=== PATIENT | female | born 1975 | race Caucasian/White ===

== ENCOUNTER → 2018-06-28 | Outpatient (CLI) | payer OTHER | LOC: M LRY 14:20 | DX: M54.5 Low back pain (principal) ==

== ENCOUNTER → 2018-09-06 | Outpatient (CLI) | payer OTHER | LOC: M RAD 08:33 | DX: Z12.31 Encounter for screening mammogram for malignant neoplasm of breast (principal) ==

== ENCOUNTER → 2019-02-02 | Outpatient (CLI) | payer OTHER ==
--- NOTE | 2019-02-02 17:48 | REP ---
UNILATERAL DIAGNOSTIC MAMMOGRAM LEFT BREAST WITH LEFT BREAST ULTRASOUND: Patient reports a palpable lump in the left axillary region. There is also a skin redness which have developed recently. Mammogram of the left breast was performed with routine MLO and CC views as well as implant displaced views, as the patient has a breast implant in place. Comparison is made with prior study of 09/06/2018. There is no family history of breast cancer. Left breast implant appears intact. Extensive calcifications are seen along the surface of the implant. There is moderate adjacent fibroglandular tissue which appears unchanged with no evidence of mass or clustered microcalcifications. There is diffuse skin thickening of the left breast which is a new finding. Real-time sonographic evaluation of the left axillary region was performed in the region of the palpable lump. There is lymphadenopathy with hyperemia with Doppler evaluation. The enlarged lymph node measures 1.4 x 2.3 x 1.8 cm. Multiple other smaller lymph nodes are seen in the left axillary region, the next largest measures 19 x 13 mm. IMPRESSION :ACR 4 suspicious. Palpable lump corresponds to multiple enlarged left axillary lymph nodes, the largest measures 1.4 x 2.3 x 1.8 cm. That large lymph node is somewhat hyperemic. In addition there is diffuse skin thickening of the left breast without underlying parenchymal mass or clustered microcalcifications. The findings could be on the basis of mastitis and inflammatory reactive axillary adenopathy. However differential diagnosis would also include inflammatory breast carcinoma or other neoplastic causes for left axillary adenopathy. If the patient clinically does have mastitis then I would recommend followup mammogram and ultrasound after treatment to ensure that these findings resolve. Otherwise surgical consult is recommended to evaluate for these other possible neoplastic etiologies. This mammogram was interpreted with the aid of an FDA-approved computer-aided detection system. The patient states she had a clinical breast exam in 12/2018. The patient letter being requested is M4. [facility] of [facility] cancer is 9.4%. Electronically Signed by Virgilio Conklin MD 02/05/2019 12:18 P
== END ==
LOC: M RAD 12:48
PROVIDERS: ATTEND Obstetrics & Gynecology
DX: N63.20 Unspecified lump in the left breast, unspecified quadrant (principal); R59.0 Localized enlarged lymph nodes

== ENCOUNTER → 2019-02-14 | Outpatient (CLI) | payer OTHER ==
[~2019-02-14] MED LIST: LIDOCAINE 1% MDV 20ML VIAL As Ordered ONE
--- NOTE | 2019-02-14 17:20 | REP ---
ULTRASOUND GUIDED LEFT BREAST BIOPSY The procedure was performed under the direct supervision of Dr. Hill The patient has a history of multiple enlarged left axillary lymph nodes the largest measuring 1.4 x 2.3 x 1.8 cm seen on a previous ultrasound dated 02/02/2019. The risks and benefits of the procedure were explained to the patient and informed consent was obtained. The left axillary lymph node was localized using ultrasound guidance. The skin was prepped and draped in a sterile fashion. 1% Xylocaine was used as a local anesthetic. Using ultrasound guidance a 19/20 gauge axial needle was inserted and eight core biopsy samples were obtained. A marker clip was placed at the biopsy site. The post clip placement mammogram was not performed because it was felt that the lymph node was too far lateral to be seen on mammogram. The patient tolerated the procedure well and there were no immediate complications. After the appropriate amount of monitored convalescence the patient was discharged from the department. Reviewed by BRUNO Diaz 02/14/2019 03:16 P Electronically Signed by Monico Hill MD 02/14/2019 05:11 P
== END ==
LOC: M RADPRO 11:48
PROVIDERS: ATTEND Surgery
DX: C77.3 Secondary and unspecified malignant neoplasm of axilla and upper limb lymph nodes (principal)

== ENCOUNTER → 2019-02-21 | Outpatient (CLI) | payer OTHER ==
[~2019-02-21] MED LIST changes: +ISOVUE-370 76% 125ML VIAL (Q9967 PER ML) As Ordered ONE; -LIDOCAINE 1% MDV 20ML VIAL As Ordered ONE
--- NOTE | 2019-02-24 11:01 | REP ---
Clinical: Axillary adenopathy. Technique: Axial contrast enhanced images from the thoracic inlet to the upper abdomen with coronal and sagittal re-formations. Findings: Significant left axillary adenopathy is appreciated with lymph nodes measuring up to approximately 2.4 cm diameter and subtle adjacent inflammatory fat stranding. There appears to be asymmetric increased soft tissue involving the left breast specifically along the anteroinferior region as well as associated skin thickening. These findings are nonspecific but differential diagnosis includes inflammatory process such as mastitis as well as neoplasm. Underlying bilateral breast implants are noted. 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 No underlying acute mediastinal or pleuroparenchymal process is appreciated. There is no evidence for mediastinal or hilar adenopathy. Surrounding osseous structures are intact. Limited upper abdomen demonstrates normal bilateral adrenal glands. Impression: 1. Abnormal changes involving the left breast and associated left axillary adenopathy. Differential diagnosis includes but is not limited to inflammatory process such as mastitis as well as malignancy. 2. 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 Electronically Signed by Fabian Mayers MD 02/24/2019 10:59 A
== END ==
LOC: M RAD 18:05
PROVIDERS: ATTEND Surgery
DX: R59.0 Localized enlarged lymph nodes (principal); R91.8 Other nonspecific abnormal finding of lung field
CPT/HCPCS: 71260; Q9967

== ENCOUNTER 2019-03-07 08:19 | Day surgery (SDC) | payer OTHER ==
[2019-03-07] VITALS (12 sets, daily range): BP systolic 100–124; BP diastolic 54–62
[~2019-03-07] VITALS: Ht 170.2 cm; Wt 78.3 kg
[~2019-03-07 08:19] MED LIST changes: -ISOVUE-370 76% 125ML VIAL (Q9967 PER ML) As Ordered ONE; +LIDOCAINE 2% INJ 100 MG/5 ML SDV (FOR ANES.) As Ordered ONE; +MIDAZOLAM INJ 2 MG/2 ML VIAL (J2250) As Ordered ONE; +ONDANSETRON 4MG/2ML VIAL (J2405) As Ordered ONE; +PROPOFOL 500 MG/50 ML VIAL As Ordered ONE; +dexameTHASONE 4 MG/ML 1ML VIAL (J1100) As Ordered ONE; +fentaNYL 100 MCG/2 ML INJECTION (J3010) As Ordered ONE
[2019-03-07] MEDS ORDERED: LIDOCAINE 1% SDV INJ 30 ML VIAL As Ordered ONE (08:46)
[2019-03-07] MEDS ORDERED: HEPARIN SOD (PORCINE) 5000 UNITS/ML VIAL As Ordered ONE (08:46)
[2019-03-07] MEDS ORDERED: BUPIVACAINE LIPOSOME/PF 1.3% 20ML VIAL (13.3MG/ML)(EXPAREL)(C9290 PER1MG) As Ordered ONE (08:47)
[2019-03-07] MEDS ORDERED: VANCOMYCIN 1000 MG/20 ML VIAL (J3370) As Ordered ONE (09:02)
[2019-03-07 09:11] LABS: URINE PREG TEST NEGATIVE (NEGATIVE)
[2019-03-07] MEDS ORDERED: VANCOMYCIN HCL 1,000 MG, VIAL MATE ADAPTER 1 EACH in D5W 250 ML IV ONE (09:15)
[2019-03-07] MEDS ORDERED: MUPIROCIN 2% OINT 22 GM TUBE TOP ONE (09:15)
[2019-03-07] MEDS ORDERED: MUPIROCIN 2% OINT 22 GM TUBE As Ordered ONE (09:23)
[2019-03-07] MEDS ORDERED: ePHEDrine SULFATE 25 MG/5 ML(5MG/ML) SYRINGE As Ordered ONE (09:39)
[2019-03-07] MEDS ORDERED: PROPOFOL 200 MG/20 ML VIAL As Ordered ONE ×4 (10:17→11:13)
[2019-03-07] MEDS ORDERED: fentaNYL 100 MCG/2 ML INJECTION (J3010) As Ordered ONE (10:22)
[2019-03-07] MEDS ORDERED: ISOVUE-300 61% 50ML VIAL (Q9967) As Ordered ONE (10:46)
[2019-03-07] MEDS ORDERED: KCL 20MEQ IN D5/NS 1000ML 1,000 ML IV SCH (11:44)
[2019-03-07] MEDS ORDERED: NORCO, ANEXSIA 5/325MG TABLET (HYDROcodone/ACETAMINOPHEN) PO PRN (11:45)
[2019-03-07] MEDS ORDERED: ACETAMINOPHEN TAB 650MG DOSE (2X325MG) PO PRN (11:45)
[2019-03-07] MEDS ORDERED: ONDANSETRON 4MG/2ML VIAL (J2405) IV PRN ×2 (11:45→12:00)
[2019-03-07] MEDS ORDERED: PERCOCET 5MG/325MG TAB PO PRN ×3 (11:45→12:00)
[2019-03-07] MEDS ORDERED: LR 1,000 ML IV SCH (12:00)
--- NOTE | 2019-03-07 12:25 | REP ---
Portable chest, single AP view, the patient sitting, 11:47 a.m.: Comparison is from 08:35 a.m. earlier today. Right lower lobe fissural anomaly and displacement of the heart to the right are unchanged from the comparison study and from the chest CT of 02/21/2019. There is a right IJ Hwbsgk-M-Jgkn catheter with the tip in the right atrium as an interval change. There is no pneumothorax. There is widening of the right paratracheal stripe as an interval change. Follow-up CT might be considered for further evaluation of the paratracheal area. The left lung is clear. Cardiac size is normal. Impression: Widening of the right paratracheal stripe has a change from the study earlier today. Follow-up chest CT might be considered to evaluate the right paratracheal area. Right IJ Cwvasq-U-Eiyy, not present previously. No pneumothorax. 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
--- NOTE | 2019-03-07 13:59 | RO ---
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 PROCEDURE: Insertion of a right subclavian Infusaport converted to a right internal jugular Infusaport. SURGEON: Dr. Shant Castañeda. MANAGER RESEARCH AND DEVELOPMENT: ANESTHESIA: Monitored sedation. FINDINGS: The vein was initially found on the first pass and a wire was placed without difficulty into the right atrium. The tract was dilated but was quite difficult to dilate. It was then dilated with a peel-away introducer and the catheter placed. The catheter would not proceed down the wire tract but would not enter the superior vena cava (SVC) of the right atrium. Figuring that the difficulty was secondary to a costoclavicular ligament, she was stuck a second time. Again, the vein immediately found on the first pass more laterally. This tract was dilated. The catheter was removed and again tried to pass via the second dilator and would not proceed into the SVC. Around that time, I noted that there was an increased shadow probably representing a hematoma from removing the catheter after dilation on the first stick. After several more tries of trying to get the catheter into the subclavian vessel, I called Dr. Swenson of vascular surgery. We tried a number of wire manipulations through the second subclavian site, none of which passed satisfactorily and therefore, Dr. Swenson found the internal jugular vein with ultrasound and placed a wire with that. That tract was then dilated and the remainder of the procedure went smoothly. The catheter was placed in the middle of the right atrium and all contours were smoothed at the end of the procedure. DESCRIPTION OF PROCEDURE: Under satisfactory monitored sedation, the patient prepped and draped in the usual fashion. As noted above, the subclavian vein was found on the first pass at the mid clavicular line. The tract was dilated but with some difficulty and then a peel-away introducer placed also with some difficulty. The catheter was placed low numbers down into the right atrium under fluoroscopic control and would not pass into the superior vena cava. After a number of manipulations, I still could not get the catheter to pass into the SVC. Accordingly as noted above, the subclavian vein was again on the first pass and the wire was passed without difficulty into the right atrium. Again the tract was dilated and again the catheter would not pass into the superior vena cava. I then noted that there was a increasing shadow in and around the subclavian vein, which I thought represented a hematoma. Dr. Swenson came at my request and after trying to wire the vein through the original catheter site, he found the internal jugular vein and passed a wire into the right atrium. The internal jugular tract was then dilated without difficulty and a peel-away introducer placed. The catheter was placed via the peel-away introducer and a tunnel was created between the internal jugular site and the port site. It should be noted the port site had already been opened after passing the first wire with the expectation that the catheter would thread into the right atrium without difficulty. The port pocket was developed by making a subcutaneous pocket with the electrocautery and blunt dissection. It was noted that on all of the vascular passes and creating the pocket, she had very dense fibrous tissue. After creating the tunnel between the internal jugular site and the port site, the catheter was pulled through and positioned in the middle of the right atrium with fluoroscopic control. The catheter was cut to appropriate length, a collar was placed and connected into the port. The port aspirated without difficulty. It was flushed with heparinized saline and with a final flush of heparin 100 units per mL. The port was secured to the chest wall with two #2-0 silk sutures. Final pictures were taken and all contours were smooth. The wounds were closed with running #3-0 Vicryl sutures for the subcutaneous tissues with running #4-0 silk sutures for the skin. The patient tolerated the procedure well and left the operating room in satisfactory condition for the recovery room.
--- NOTE | 2019-03-07 17:27 | REP ---
Chest x-ray: Two views. History: Right-sided [id number]. Comparison chest CT study February 21, 2019. Findings: Bilateral breast augmentation implants are noted with a peripheral a calcification. Anomalous fissural anatomy is seen in the right chest with the deviation of the heart to the right as on CT study. There is no evidence of infiltrate. No pleural effusion is seen. Heart is not enlarged. The aorta and gastric air bubble are left-sided. No significant bony abnormality. Impression: Anomalous fissural anatomy right lung with some deviation of the heart to the right as seen on recent CT study. Status post bilateral breast augmentation. Otherwise no acute disease. Electronically Signed by Monico Hill MD 03/07/2019 05:19 P
--- NOTE | 2019-03-07 17:28 | REP ---
Chest x-ray: Two views. History: Zbsdvh-X-Dxib insertion. Breast carcinoma. Findings: A sequence of two last image hold fluoroscopically obtained spot radiographs document [id number] catheter position placed via the right side. 9 minutes 43 seconds of fluoroscopy time is reported. Electronically Signed by Monico Hill MD 03/07/2019 05:19 P
[2019-03-07] MEDS ORDERED: HEPARIN SOD (PORCINE) 5000 UNITS/ML VIAL SC SCH (21:00)
[2019-03-08 04:00] VITALS: BP 111/55
[2019-03-08 05:49] LABS: BASO % 0.3 % (0.0-1.0); EOS % 0.3 % (0.0-3.0); HEMATOCRIT 35.1 % (36.0-47.0); HEMOGLOBIN 11.7 g/dl (12.0-15.5); LYMPH # 2.3 10^3/uL (1.5-4.5); LYMPH % 26.6 % (24.0-44.0); MEAN CORPUSCULAR HGB CONC 33.3 g/dl (32.0-36.5); MEAN CORPUSCULAR VOLUME 86.9 fl (80.0-96.0); MONO # 0.6 10^3/uL (0.0-0.8); MONO % 6.3 % (0.0-5.0); NEUTROPHILS # 5.7 10^3/uL (1.8-7.7); NEUTROPHILS % 66.3 % (36.0-66.0); PLATELET COUNT, AUTOMATED 257 10^3/uL (150-450); RED BLOOD COUNT 4.04 10^6/uL (4.00-5.40); WHITE BLOOD COUNT 8.7 10^3/uL (4.0-10.0)
[2019-03-08 06:10] LABS: BLOOD UREA NITROGEN 8 MG/DL (7-18); CALCIUM LEVEL 8.5 MG/DL (8.5-10.1); CARBON DIOXIDE LEVEL 27 MEQ/L (21-32); CHLORIDE LEVEL 108 MEQ/L (98-107); CREATININE FOR GFR 0.62 MG/DL (0.55-1.30); GLOMERULAR FILTRATION RATE > 60.0 (>58); GLUCOSE, FASTING 89 MG/DL (70-100); POTASSIUM SERUM 3.7 MEQ/L (3.5-5.1); SODIUM LEVEL 141 MEQ/L (136-145)
[2019-03-08 08:00] VITALS: BP 117/63
--- NOTE | 2019-03-08 08:00 | REP ---
PA and lateral chest: Comparisons are 03/07/2019. The right IJ Faqgmq-M-Bzvj is unchanged with the tip in the right atrium. There is no pneumothorax or pleural fluid collection. The widening of the right paratracheal stripe noted on the 03/07/1929 study and 09/1947 has decreased in size. Follow-up CT might be considered for further evaluation. The right lower lobe fissural anomaly and displacement of the heart to the right are unchanged. Left lung is clear. Impression: The widening of the right paratracheal stripe has decreased. Right IJ central venous catheter, unchanged. Electronically Signed by Virgilio Ku MD 03/08/2019 07:51 A
--- NOTE | 2019-03-08 09:21 | DSES ---
DATE OF ADMISSION: 03/07/2019 DATE OF DISCHARGE: 03/08/2019 DISCHARGE DIAGNOSES: 1. Inflammatory breast cancer, triple negative, need for vascular access and chemotherapy. 2. Status post PowerPort placement. 3. Hematoma mediastinum after placement of port. HOSPITAL COURSE: The patient is a 43-year-old white female with inflammatory breast cancer scheduled for approximately three months of chemotherapy prior to undertaking mastectomy. Her markers including progesterone, estrogen and HER2 are all negative. During the procedure while the subclavian vein was found on the first pass very easily, there was difficulty dilating the site. The subclavian vein was found twice in different portions underneath the clavicle. The Peel-Away introducer had been placed and then removed, and the first site bled. The port was eventually placed in the internal jugular vein. During fluoroscopy I noted a new shadow, which I interpreted as a hematoma and therefore had her stay overnight as an SDC patient. Postoperatively, she had minimal pain. Her discharge x-ray showed near resolution of the hematoma. She is being discharged today on Tylenol or Aleve as needed for pain. She will return to see me in one week in follow-up with a chest x-ray.
[2019-03-16] MEDS ORDERED: ZYPR10TA PO (11:10)
[2019-03-16] MEDS ORDERED: DECA4TAB PO (11:10)
[2019-03-16] MEDS ORDERED: ONDA8TAB7 PO (11:10)
[2019-03-16] MEDS ORDERED: PROC10TA4 PO (11:10)
== END 2019-03-08 10:25 | disposition home or self-care (01) ==
LOC: M SDC 08:19 → M ICU 12:40 → M PCU 03-08 00:30 → M SDC 03-08 10:25
PROVIDERS: ATTEND Thoracic Surgery (Cardiothoracic Vascular Surgery)
DX: C50.912 Malignant neoplasm of unspecified site of left female breast (principal); Z45.2 Encounter for adjustment and management of vascular access device; I97.418 Intraoperative hemorrhage and hematoma of a circulatory system organ or structure complicating other circulatory system procedure; Z88.0 Allergy status to penicillin; Z88.2 Allergy status to sulfonamides; Z88.6 Allergy status to analgesic agent; Z87.891 Personal history of nicotine dependence
CPT/HCPCS: 36415; 36561; 71045; 71046; 76000; 80048; 84703; 85025; 96360; 96361; 96372; C1769; C1788; C1887; C9290; J1100; J2250; J2405; J3010; J3370; Q9967

== ENCOUNTER → 2019-03-12 | Outpatient (CLI) | payer OTHER ==
--- NOTE | 2019-03-13 06:57 | ECHO ---
DATE OF PROCEDURE: 03/12/2019 PATIENT LOCATION: Outpatient. REASON FOR ECHOCARDIOGRAM: Chemotherapy drug monitoring. 2D MEASUREMENTS: IVS: 0.92 cm LV: 5.3 cm LVPW: 0.92 cm LA: 3.3 cm Aorta: 2.9 cm IVC: 1.4 cm DOPPLER MEASUREMENTS: Peak velocity across the aortic valve: 1.3 m/s Peak velocity across the LVOT: 0.52 m/s Mitral E: 1.2 Mitral A: 0.59 with a ratio of 1.9 Maximum tricuspid valve velocity: 2.4 m/s 2D COMMENTS: 1. Normal left ventricular size, wall thickness, and normal global left ventricular systolic function. The estimated global left ventricular systolic ejection fraction is 60-65%. 2. Normal left atrium. Normal right atrium and left ventricle. 3. The atrial septum appeared to be normal without evidence of defect or shunt. 4. Normal aortic root. 5. Trace to small pericardial effusion noted, no evidence of cardiac tamponade. 6. Mildly calcified aortic valve with normal leaflet excursion. Mildly calcified mitral annulus with normal anterior mitral valve leaflet motion. Normal tricuspid valve. The pulmonic valve was not well visualized. 7. The inferior vena cava was normal in size, central venous pressure is most likely normal. Doppler, it detects only trace tricuspid regurgitation. The calculated pulmonary artery systolic pressure varies between 30 to 40 mmHg, but may be over estimated. Assessment of the left ventricular diastolic function appeared to be normal. IMPRESSION: 1. Normal global left ventricular systolic and diastolic function. 2. Aortic valve sclerosis without stenosis or aortic regurgitation. 3. As related, mitral annulus calcification. No evidence of mitral regurgitation or mitral stenosis. 4. Trace tricuspid regurgitation with probably mild pulmonary hypertension. 5. Trace/small pericardial effusion noted, no evidence of cardiac tamponade. 6. The study was technically limited due to poor acoustic window.
== END ==
LOC: M CARPUL 08:09
PROVIDERS: ATTEND Internal Medicine Hematology & Oncology
DX: C50.119 Malignant neoplasm of central portion of unspecified female breast (principal)

== ENCOUNTER → 2019-03-13 | Outpatient (CLI) | payer OTHER ==
--- NOTE | 2019-03-14 09:16 | REP ---
PET/CT: HISTORY: Staging left breast carcinoma. COMPARISONS: Comparison chest CT study of February 21, 2019. TECHNIQUE: 59 minutes following the intravenous injection of a 9.68 mCi dose of F-18 FDG, three-dimensional PET scintigraphy is acquired from the skull base to the proximal thighs. Triplanar noncontrast CT scanning is acquired through the same anatomic range for attenuation correction, and image registration with scan parameters optimized to minimize radiation exposure to the patient. PET scintigraphy and CT datasets were fused and displayed on a workstation with multiplanar and projection display capability. PET/CT FINDINGS: There is extensive abnormal hypermetabolic uptake in the left breast. There are large areas of hypermetabolic tissue in the left breast inferiorly and throughout the subareolar region and upper outer quadrant. In the inferior and slightly medial left breast, maximum standard uptake value peaks at 15.32. The remainder of the hypermetabolic activity within the breast parenchyma shows lesser degree of avidity. Maximum SUV value in the left subareolar breast tissue is 4.75 and that in a large area of hypermetabolic abnormal uptake in the upper outer quadrant of the left breast is at 6.0. There is extensive hypermetabolic left axillary lymphadenopathy, which is fairly bulky. Maximum standard uptake value in these multiple left axillary lymph nodes is 17.1. This is the adenopathy seen on CT. There is hypermetabolic left subclavian adenopathy with maximum standard uptake value up to 5.95. There is left supraclavicular adenopathy in several small nodes. The most avid of these left supraclavicular nodes has maximum standard uptake value of 9.0. Lastly there is an area of increased uptake in the right mediastinum superiorly in the paratracheal region with maximum standard uptake value 5.12. This is more avid than background vascular mediastinal uptake. There is no abnormal pulmonary parenchymal hypermetabolic uptake. Head and neck soft tissues are otherwise unremarkable. No abnormal uptake is seen in the abdomen or pelvis. No abnormal skeletal uptake is appreciated. IMPRESSION: Extensive abnormal hypermetabolic uptake throughout much of the left breast as above with bulky left axillary adenopathy. Hypermetabolic subclavian and the supraclavicular adenopathy is also seen on the left and there is a right mediastinal focus. Otherwise negative. Electronically Signed by Monico Hill MD 03/14/2019 08:01 P
== END ==
LOC: M PLARAD 14:17
PROVIDERS: ATTEND Internal Medicine Hematology & Oncology
DX: C50.812 Malignant neoplasm of overlapping sites of left female breast (principal)

== ENCOUNTER → 2019-05-03 | Outpatient (CLI) | payer OTHER ==
[~2019-05-03] MED LIST changes: +COLA100C5 PO; +DECA4TAB PO; -LIDOCAINE 2% INJ 100 MG/5 ML SDV (FOR ANES.) As Ordered ONE; -MIDAZOLAM INJ 2 MG/2 ML VIAL (J2250) As Ordered ONE; +OMEP20CA3 PO; +ONDA8TAB7 PO; -ONDANSETRON 4MG/2ML VIAL (J2405) As Ordered ONE; +PROC10TA4 PO; -PROPOFOL 500 MG/50 ML VIAL As Ordered ONE; +ZYPR10TA PO; -dexameTHASONE 4 MG/ML 1ML VIAL (J1100) As Ordered ONE; -fentaNYL 100 MCG/2 ML INJECTION (J3010) As Ordered ONE
--- NOTE | 2019-05-03 15:47 | REP ---
UNILATERAL MAMMOGRAM LEFT BREAST AND LEFT AXILLARY ULTRASOUND: The patient underwent ultrasound guided biopsy of left axillary adenopathy recently which showed evidence for primary breast cancer with metastatic adenopathy in the left axilla. She has just finished her first round of chemotherapy treatment. Followup unilateral mammogram was requested of the left breast. Comparison is made with prior studies 02/02/2019 and 09/06/2018. Once again, a left breast implant is visualized with extensive calcifications along its surface. There is no extracapsular rupture. Mild to moderate adjacent fibroglandular tissue is seen in the visualized left breast. There is moderate diffuse skin thickening. This was present on the exam of 02/02/2019. No new mass or clustered microcalcifications are seen. Real-time sonographic evaluation of the left axilla is performed. Three lymph nodes are visualized. One contains a biopsy clip and measures 1.5 x 0.6 x 1.0 cm. Two other smaller lymph nodes both measure 9 x 4 x 8 mm. IMPRESSION: ACR category 6 known breast cancer. There is again moderate degree of diffuse skin thickening of the left breast without underlying parenchymal mass or clustered microcalcifications. Left axillary ultrasound shows a dominant lymph node containing a biopsy clip measuring 1.5 x 0.6 x 1.0 cm. Two adjacent subcentimeter lymph nodes are seen. Electronically Signed by Virgilio Conklin MD 05/07/2019 04:55 P
== END ==
LOC: M RAD 12:58
PROVIDERS: ATTEND Nurse Practitioner Family
DX: C50.912 Malignant neoplasm of unspecified site of left female breast (principal)

== ENCOUNTER → 2019-06-12 | Outpatient (CLI) | payer OTHER ==
[~2019-06-12] MED LIST changes: +CHOL100029 PO; +MULTCAP PO; +OMEP1CAP73 PO; -OMEP20CA3 PO; +ONDA8TAB10 PO; -ONDA8TAB7 PO; +PEPC1TAB5 PO; +SENN1TAB41 PO
--- NOTE | 2019-06-12 14:11 | REP ---
LEFT AXILLARY ULTRASOUND: Real-time sonographic evaluation of the left axilla performed and compared to a prior study of 05/03/2019. Once again, in the left axilla, there is a lymph node with a biopsy clip. It measures 15 x 13 x 7 mm. This is essentially unchanged compared to the prior study. Electronically Signed by Virgilio Conklin MD 06/12/2019 06:45 P
== END ==
LOC: M RAD 11:07
PROVIDERS: ATTEND Internal Medicine Medical Oncology
DX: C50.912 Malignant neoplasm of unspecified site of left female breast (principal)

== ENCOUNTER → 2019-06-14 | Outpatient (CLI) | payer OTHER ==
[~2019-06-14] MED LIST changes: -CHOL100029 PO; -OMEP1CAP73 PO; +OMEP20CA4 PO; -ONDA8TAB10 PO; +ONDA8TAB7 PO; +VITAD1000T PO
--- NOTE | 2019-06-14 12:36 | REP ---
UNILATERAL MAMMOGRAM, LEFT BREAST: HISTORY: Left breast cancer, biopsy performed 02/14/2019. Patient has had chemotherapy treatment. Comparison made with prior studies 05/03/2019, 07/05/2019, and 09/06/2018. Once again, there is a left breast implant with extensive calcifications along its surface. Scattered fibroglandular tissue in the adjacent left breast is stable. No new mass or architectural distortion is seen. There is again diffuse skin thickening of the left breast, which is stable compared to the 05/03/2019 exam. IMPRESSION: BIRADS 6: BI-RADS/ACR category 6 mammogram. Known Biopsy Proven Malignancy. ACR category 6. Known left breast cancer. Moderate diffuse skin thickening is unchanged. There is moderate underlying fibroglandular tissue appearing nonspecific with no new mass or clustered microcalcifications. Essentially no change from the prior study 05/03/2019. Electronically Signed by Virgilio Conklin MD 06/17/2019 07:09 P
== END ==
LOC: M RAD 11:11
PROVIDERS: ATTEND Internal Medicine Medical Oncology
DX: C50.919 Malignant neoplasm of unspecified site of unspecified female breast (principal)

== ENCOUNTER → 2019-10-15 | Outpatient (CLI) | payer OTHER ==
[~2019-10-15] MED LIST changes: +CHOL100029 PO; +GASTROGRAFIN SOLUTION 30ML (Q9963) As Ordered ONE; +ISOVUE-370 76% 100ML VIAL (Q9967) As Ordered ONE; -VITAD1000T PO
--- NOTE | 2019-10-15 12:25 | REP ---
CT CHEST WITH IV CONTRAST: HISTORY: Restaging breast carcinoma. Comparison chest CT study March 14, 2019. CT CONTRAST DOSE: 100 mL of intravenous Isovue 370. 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 There is an incomplete fissure in the right lower lobe obliquely oriented. This morphology is unchanged from prior studies including January and February 2019. There is no evidence of pleural effusion, lung mass or significant nodule. The prior study showed bilateral augmentation implants whose margins were somewhat calcific. The implant has been removed from the left breast in the interval since the last study and a tissue superannuation funds manager is seen in place, although it appears deflated. The right augmentation implant is again seen unchanged. A left mastectomy has been carried out. No axillary lymphadenopathy is seen. The previously noted left axillary nodes have been removed. The only visible left axillary lymph nodes remaining measures 5.5 mm. No supraclavicular or other extrathoracic adenopathy is seen. There is a right-sided Edhbtl-U-Zxtu catheter. No hilar or mediastinal mass or adenopathy is observed. There is dextroversion of the heart as previously noted. No adrenal lesion is seen. Bone window settings show no bony destructive lesion or sclerotic change. IMPRESSION: Interval left mastectomy with tissue superannuation funds manager in place. Status post augmentation on the right. 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 No active cardiopulmonary disease seen. Previously noted left axillary lymph nodes have been removed. Electronically Signed by Monico Hill MD 10/15/2019 12:46 P
--- NOTE | 2019-10-15 12:27 | REP ---
CT ABDOMEN PELVIS WITHOUT AND WITH IV CONTRAST: With oral contrast. HISTORY: Restage breast carcinoma. No comparison abdomen or pelvis CT. Comparison is made with PET/CT study March 13, 2019. FINDINGS: Left breast has been removed. No adrenal lesion is seen. There is a small sliding-type hiatal hernia. There is no focal liver mass lesion is seen. Spleen is unremarkable. No abnormality is noted in the pancreas. The gallbladder is unremarkable. The kidneys enhance symmetrically and are morphologically intact. There is no evidence of ascites. Small and large intestinal bowel loops are unremarkable in the abdomen and pelvis except for some left colonic diverticulosis without CT evidence of diverticulitis. No uterine or ovarian abnormality is seen. Urinary bladder is unremarkable. No bony destructive lesion is seen. IMPRESSION: No acute abdominal or pelvic abnormality. Electronically Signed by Monico Hill MD 10/15/2019 12:46 P
== END ==
LOC: M RAD 09:04
PROVIDERS: ATTEND Internal Medicine Medical Oncology
DX: C50.919 Malignant neoplasm of unspecified site of unspecified female breast (principal); Z90.12 Acquired absence of left breast and nipple
CPT/HCPCS: 71260; 74178; Q9963; Q9967

== ENCOUNTER 2019-11-09 12:45 | Outpatient (RCR) | payer OTHER ==
[~2019-11-09 12:45] MED LIST changes: -GASTROGRAFIN SOLUTION 30ML (Q9963) As Ordered ONE; -ISOVUE-370 76% 100ML VIAL (Q9967) As Ordered ONE; +OMEP-172 PO; -OMEP20CA4 PO
== END 2019-11-27 ==
LOC: M PT 12:45
PROVIDERS: ATTEND Student in an Organized Health Care Education/Training Program
DX: C50.812 Malignant neoplasm of overlapping sites of left female breast (principal); Z17.1 Estrogen receptor negative status [ER-]

== ENCOUNTER → 2019-12-07 | Outpatient (CLI) | payer OTHER ==
[~2019-12-07] MED LIST changes: -OMEP-172 PO; +OMEP1CAP73 PO; +ONDA8TAB10 PO; -ONDA8TAB7 PO
--- NOTE | 2019-12-11 07:32 | RADONC ---
RADIATION ONCOLOGY CONSULTATION NOTE DATE: 12/07/2019 CHART #: [id number] DIAGNOSIS: Left breast cancer. STAGE: III C, T4d, N3, M0, poorly differentiated, grade 3, ER negative, HI negative, HER2/russ negative. ECOG PERFORMANCE STATUS: 0. CONSULTATION NOTE: Ms. 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 HISTORY OF PRESENT ILLNESS: The patient was in her usual state of health until December 2018 when she felt a lump in her left axillary region. The patient had a history of breast augmentation bilaterally prior to that. The patient noticed that the lump and skin were growing firmer and there was redness to the skin too, which was patchy and located on various parts of the breast, including in the lower half of the breast. The nipple itself was also indurated. The patient subsequently underwent diagnostic workup which included a diagnostic mammogram done 02/02/2019. This showed a suspicious area where the palpable lump was present. It corresponded to multiple enlarged left axillary lymph nodes. The largest measuring 1.4 cm x 2.3 cm x 1.8 cm. In addition, there was diffuse skin thickening of the left breast as well as the underlying parenchymal area. There were no definitive lumps or microcalcifications in the breast tissue itself. A PET scan was done on 03/13/2019 and showed hypermetabolic uptake which was extensive throughout the left breast with bulky left axillary lymphadenopathy. There was hypermetabolic uptake in the subclavian and supraclavicular region as well and there was also adenopathy seen in the right mediastinal area. The mediastinal region was superior in the paratracheal region and had an SUV value of 5.12. The patient subsequently underwent ultrasound-guided biopsy of her left axillary lymph node on 02/14/2019 which showed a poorly differentiated metastatic adenocarcinoma consistent with a breast primary. The tumor was estrogen receptor and progesterone receptor negative and HER2/russ negative as well. Neoadjuvant therapy was given consisting of dose dense Adriamycin and Cytoxan as well as 12 weekly doses of Taxol. The patient responded nicely and reports to me that on October 22, 2019 she underwent mastectomy and axillary lymph node dissection. Unfortunately, I do not have those records at this time and we await them to make final decisions with regards to her overall treatment plan. She is now presenting for consideration of postoperative radiation therapy in attempt to achieve local control. PAST MEDICAL HISTORY: The patient's past medical history is positive for her bilateral breast implants, but is otherwise noncontributory. ALLERGIES: The patient is allergic to ASPIRIN, IBUPROFEN, PENICILLIN and SULFA DRUGS. SOCIAL HISTORY: The patient had smoked one half-a-pack cigarettes per day for 20 years. She quit when she was diagnosed with breast cancer. She drinks alcohol weekly. FAMILY HISTORY: The patient's family history is positive for maternal grandmother and mother with skin cancers. REVIEW OF SYSTEMS: The patient's review of systems is noncontributory. Denies nausea, vomiting, fevers, chills, night sweats, diplopia, headaches, anxiety or depression, anorexia, weight loss, visual disturbances, chest pain, urinary or bowel difficulties, bone pain, or neurological problems. PHYSICAL EXAMINATION: The patient is a well-developed, well-nourished female in no acute distress. HEENT exam is normocephalic, atraumatic. Extraocular movements are intact. There is no palpable cervical, supraclavicular, infraclavicular, axillary, or inguinal lymphadenopathy present. Lungs are clear to auscultation and percussion. Heart has a regular rate and rhythm. Abdomen is benign with no hepatosplenomegaly, masses, or tenderness. Breast examination reveals a right breast which has a surgical enlargement in place. Her left chest wall shows no evidence of nodularity, ulceration or residual disease. Skeletal examination reveals no tenderness to pressure or percussion of the bony skeleton. Extremities reveal no clubbing, cyanosis, or edema. Neurologic exam is grossly intact, as is the remainder of the physical examination. ASSESSMENT: First, we are attempting to obtain the patient's pathology reports as well as her operative notes from her mastectomy for the sake of thoroughness and before we can officially make a recommendation with regards to our doses and treatment plans. I have discussed with the patient in detail the potential benefits as well as possible acute and chronic sequelae of external beam radiation therapy. We have discussed logistics of treatment planning, simulation and subsequent fractionated daily radiation treatments. I am scheduling the patient for simulation and initiation of treatment planning, once again, pending our obtaining the full surgical and pathological records. In light of this patient's extensive disease and the need to treat the internal mammary as well as supraclavicular and axillary lymph nodes, as well as, the left breast and the lower cervical region, IMRT radiation will be needed. This will give us the opportunity to minimize the doses to her heart, lungs and other normal tissue. In light of the surgically enhanced right breast, that area will be receiving some radiation as well. Thank you for allowing us to participate in the care of this very pleasant woman. If I could be of any further assistance or provide you any information, please feel free to contact me at anytime as. Always warm regards.
== END ==
LOC: M ONCR 09:58
PROVIDERS: ATTEND Radiology Radiation Oncology
DX: C50.912 Malignant neoplasm of unspecified site of left female breast (principal); Z90.12 Acquired absence of left breast and nipple; Z87.891 Personal history of nicotine dependence; Z88.0 Allergy status to penicillin; Z88.2 Allergy status to sulfonamides; Z88.6 Allergy status to analgesic agent

== ENCOUNTER → 2019-12-28 | Outpatient (RCR) | payer OTHER ==
--- NOTE | 2019-12-17 11:47 | RADONC ---
RADIATION ONCOLOGY SIMULATION NOTE DATE OF SERVICE: 12/17/2019 CHART NUMBER: [id number] Ms. Dennis was taken to the CT scan for CT simulation of her left breast field. CT was accomplished without difficulty or discomfort. Radiation treatment planning is underway and radiation treatments will begin subsequently. An immobilization device was created and will be used throughout the course of treatment. It was created without difficulty or discomfort. I was physically present throughout the course of CT simulation.
[~2019-12-28] MED LIST changes: +ACET-683 PO; +ADV250INH INH; +PERC5TAB12 PO
== END ==
LOC: M ONCR 12-17 10:17
PROVIDERS: ATTEND Radiology Radiation Oncology
DX: C50.912 Malignant neoplasm of unspecified site of left female breast (principal)

== ENCOUNTER 2019-12-29 14:34 | Emergency (ER) | payer OTHER ==
[~2019-12-29] VITALS: Ht 170.2 cm; Wt 86.9 kg
[~2019-12-29 14:34] MED LIST changes: -ACET-683 PO; -ADV250INH INH; -PERC5TAB12 PO
[2019-12-29] MEDS ORDERED: ACET-683 PO (14:59)
[2019-12-29] MEDS ORDERED: ASPIRIN 325 MG TAB PO ONE (15:00)
[2019-12-29] MEDS ORDERED: MORPHINE 2 MG/ML 1ML VIAL (J2270) IV ONE (15:00)
--- NOTE | 2019-12-29 15:34 | REP ---
No chest, 03:02 p.m., single AP view the patient upright: Comparisons are the chest CT of 10/15/2019 and PA and lateral chest of 2018. On the comparison CT there are bilateral breast implants. The implant on the left is collapsed. There is dextrocardia. 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 There is focal increased density inferiorly in the right lung, however, this is unchanged from 03/14/2019 and is likely secondary to the right breast implant and dextrocardia. There is a right IJ Wxflhv-Y-Fcil catheter with the tip in the right atrium, unchanged. Lung vila otherwise clear. The right cardiac margin is obscured and the cardiac size cannot be determined. The ender, mediastinum, skeletal structures are unremarkable. Impression: No acute cardiopulmonary changes. No change from the 03/14/2019 plain film study except that the left breast implant is now collapsed. Electronically Signed by Virgilio Ku MD 12/29/2019 03:25 P
[2019-12-29 15:48] LABS: BASO % 0.1 % (0.0-1.0); EOS % 0.3 % (0.0-3.0); HEMATOCRIT 40.5 % (36.0-47.0); HEMOGLOBIN 13.1 g/dl (12.0-15.5); LYMPH # 0.4 10^3/uL (1.5-5.0); MEAN CORPUSCULAR HEMOGLOBIN 27.8 pg (27.0-33.0); MEAN CORPUSCULAR HGB CONC 32.3 g/dl (32.0-36.5); MONO # 0.6 10^3/uL (0.0-0.8); MONO % 6.7 % (0.0-5.0); NEUTROPHILS # 7.7 10^3/uL (1.5-8.5); NEUTROPHILS % 87.4 % (36.0-66.0); PLATELET COUNT, AUTOMATED 233 10^3/uL (150-450); RED BLOOD COUNT 4.71 10^6/uL (4.00-5.40); WHITE BLOOD COUNT 8.8 10^3/uL (4.0-10.0)
[2019-12-29 16:00] LABS: INR 1.05; PROTHROMBIN TIME 13.4 SECONDS (11.8-14.0)
[2019-12-29 16:14] LABS: ALBUMIN 3.8 GM/DL (3.2-5.2); ALT/SGPT 14 U/L (12-78); BILIRUBIN,DIRECT 0.1 MG/DL (0.0-0.2); BILIRUBIN,TOTAL 0.6 MG/DL (0.2-1.0); CK-MB VALUE MASS < 1.0 NG/ML (<3.6); CPK CREATINE PHOSPHOKINASE 70 U/L (26-192); LIPASE 80 U/L (73-393); MB/CK RELATIVE INDEX 1.43 (< OR =4); TOTAL PROTEIN 6.9 GM/DL (6.4-8.2); TROPONIN I < 0.02 NG/ML (< 0.10)
[2019-12-29] MEDS ORDERED: PERC5TAB12 PO (16:22)
[2019-12-29] MEDS ORDERED: ADV250INH INH (16:38)
[2019-12-29 16:49] VITALS: BP 157/72
--- NOTE | 2019-12-29 21:53 | ECGEPIP ---
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
--- NOTE | 2019-12-31 10:51 | RADONC ---
RADIATION ONCOLOGY DATE: 12/29/2019 CHART NUMBER: [id number] I received a text from Ms. Dennis saying that she has severe central chest pain and can only take very shallow breaths. I called the patient up and apparently she had been treated since Tuesday. She had no problems with radiation all the way through her treatments this week. She was fine last night and actually woke up this morning without any problems breathing or any discomfort. She reports approximately an hour after waking up, she began developing sudden severe central internal chest pain deep in the middle of her chest. She reports that she is only able to breathe very shallowly with significant pain with that sudden onset. I instructed the patient to come immediately to our emergency room. I let her know that this is unusual for radiation and a sudden onset in the central location deep away from the higher dose radiation field was concerning to me. I let her know that I believe this should rule out other potentially significant diseases such as vascular or cardiac. I let her know I cannot make an evaluation over the phone and that I wanted her to be seen immediately at the emergency room.
== END 2019-12-29 16:52 | disposition home or self-care (01) ==
LOC: M ED 14:34
DX: R09.1 Pleurisy (principal); R07.89 Other chest pain; Z85.3 Personal history of malignant neoplasm of breast; Z88.0 Allergy status to penicillin; Z88.2 Allergy status to sulfonamides; Z88.8 Allergy status to other drugs, medicaments and biological substances
CPT/HCPCS: 36415; 71045; 80047; 80076; 82550; 82553; 83690; 84484; 85025; 85610; 93005; 93041; 94760; 96374; 99285; J2270

== ENCOUNTER → 2020-01-21 | Outpatient (CLI) | payer OTHER ==
[~2020-01-21] MED LIST changes: +ACET-683 PO; +ADV250INH INH; +PERC5TAB12 PO
--- NOTE | 2020-01-21 12:45 | REP ---
LEFT KNEE, TWO VIEWS: Two views of the left knee performed. There is o evidence of acute fracture, dislocation or intrinsic bone disease. No joint effusion is seen. IMPRESSION: No fracture or dislocation. Electronically Signed by Virgilio Conklin MD 01/21/2020 03:58 P
--- NOTE | 2020-01-22 09:44 | RADONC ---
RADIATION ONCOLOGY PROGRESS NOTE DATE OF SERVICE: 01/21/2020 CHART NUMBER: [id number]. PROGRESS NOTE: Ms. Denins is presently at a dose of 3240 cGy to her left chest wall and is tolerating treatments quite well at this point with no significant difficulties related to her radiation therapy other than a skin reaction. REVIEW OF SYSTEMS: The patient's review of systems is noncontributory. She denies nausea, vomiting, fevers, chills, night sweats, diplopia, headaches, anxiety or depression, anorexia, weight loss, visual disturbances, chest pain, urinary or bowel difficulties, bone pain, or neurological problems. PHYSICAL EXAMINATION: The patient's skin overall is in generally good condition with some tanning and erythema present. There is a very small area of dry desquamation in the axillary region. This is nontender. The remainder of her physical exam remains unchanged. Ms. Dennis is tolerating treatments quite well, and radiation will continue as scheduled.
== END ==
LOC: M RAD 11:10
PROVIDERS: ATTEND Internal Medicine Medical Oncology
DX: S80.02XA Contusion of left knee, initial encounter (principal); X58.XXXA Exposure to other specified factors, initial encounter; Y92.89 Other specified places as the place of occurrence of the external cause; Z85.3 Personal history of malignant neoplasm of breast

== ENCOUNTER 2020-01-23 10:28 | Outpatient (RCR) | payer OTHER ==
--- NOTE | 2019-12-31 13:51 | RADONC ---
RADIATION ONCOLOGY PROGRESS NOTE: DATE: 12/31/2019 CHART NUMBER: [id number] Ms. Dennis is presently at a dose of 900 cGy to her left chest wall. Today she is doing quite well with no complaints related to her radiation therapy. REVIEW OF SYSTEMS: The patient's review of systems is noncontributory. She denies nausea, vomiting, fevers, chills, night sweats, diplopia, headaches, anxiety or depression, anorexia, weight loss, visual disturbances, chest pain, urinary or bowel difficulties, bone pain, or neurological problems. Over the weekend, however the patient reports that she had done well throughout her initial treatments. She woke up and had severe chest pain. She did go to the ER. Cardiac issues were ruled out and she was told she had pleuritis. The pain is now resolved. PHYSICAL EXAMINATION: The patient's skin is in good condition with no evidence of radiation change present. There is no moist or dry desquamation. The remainder of her physical exam remains unchanged. Ms. Dennis is tolerating her treatments quite well and radiation will continue as scheduled. We will continue to watch her for more episodes of pleural inflammation.
--- NOTE | 2020-01-07 11:22 | RADONC ---
RADIATION ONCOLOGY DATE OF SERVICE: 01/07/2020 CHART NUMBER: [id number] Ms. Dennis is a patient of breast cancer status post mastectomy on the left. She is currently on radiation therapy to the left chest wall, so far she has received a dose of 1620 cGy. She is tolerating treatment well without any new complaints. REVIEW OF SYSTEMS: Noncontributory. Last week she went to the emergency room (ER) with chest pain, however, everything is okay. She says he occasionally experienced headache and queasiness. She denies fever, chill, night sweat, anxiety or depression. No chest pain. No /GI problems. PHYSICAL EXAMINATION: She is in good general condition. There is mild erythema over the left chest wall. She is not using any cream and was advised to use aloe from the plant. She says she has bought a plant. Overall she is tolerating treatment quite well and the radiation therapy will continue as planned.
--- NOTE | 2020-01-15 10:02 | RADONC ---
DATE OF SERVICE: 01/14/2020 CHART NUMBER: [id number] Ms. Dennis is a patient of left breast cancer status post mastectomy. She is currently on radiation therapy to the left chest wall. So far she has received dose of 2340 cGy in 180 cGy daily fractions. She is tolerating treatment well without any new complaints. REVIEW OF SYSTEMS: Noncontributory. She denies fevers, chills, night sweats, anxiety or depression. No /GI symptoms. No respiratory or cardiac symptoms. PHYSICAL EXAMINATION: She appeared to be in good general condition. She weighs 192.6 pounds. Blood pressure 110/59. Pulse 79. Respirations 16. Temperature 97.4. Oxygen saturation is 100% on room air. There was mild to moderate skin erythema over the left chest wall. She is using aloe from the plant and she also bought hydrocortisone cream for itching. There is no lymphadenopathy in the neck bilaterally. There is a slight swelling of the left arm. ASSESSMENT AND PLAN: She is tolerating treatment very well and the radiation therapy will continue as planned. [facility]
== END 2020-01-26 ==
LOC: M ONCR 10:28
PROVIDERS: ATTEND Radiology Radiation Oncology
DX: C50.912 Malignant neoplasm of unspecified site of left female breast (principal)

== ENCOUNTER 2020-02-21 10:29 | Outpatient (RCR) | payer OTHER ==
--- NOTE | 2020-01-29 13:08 | RADONC ---
RADIATION ONCOLOGY PROGRESS NOTE DATE: 01/28/2020 CHART #: [id number] Ms. Dennis is thus far at a dose of 3600 cGy to her left chest wall and was last treated on 01/23/2020. The patient came in today reporting that she is having pain over the skin of her chest wall. REVIEW OF SYSTEMS: The patient's review of systems is positive for skin pain but is otherwise noncontributory. Denies nausea, vomiting, fevers, chills, night sweats, diplopia, headaches, anxiety or depression, anorexia, weight loss, visual disturbances, chest pain, urinary or bowel difficulties, bone pain, or neurological problems. PHYSICAL EXAMINATION: The patient's skin shows brisk erythema and dark tanning present. There is an area of moist desquamation in the axillary region. The remainder of her physical exam remains unchanged. After a lengthy discussion with Ms. Dennis, she will be on rest this week and has been given skin care instructions. Unfortunately, she is allergic to sulfa drugs and therefore we have not given her any Silvadene. She will be using aloe from the plant. I have instructed to feel free and contact me. She has my cell phone number and work number if I could be of any assistance during this week and to let us know of any new difficulties as she encounters them. We have offered to send in a prescription for pain medication if she so desires.
--- NOTE | 2020-02-05 15:48 | RADONC ---
RADIATION ONCOLOGY PROGRESS NOTE DATE: 02/04/2020 CHART NUMBER: [id number] Ms. Dennis is presently at a dose of 3780 cGy to her left chest wall. She had been on break and her previous treatment was on 01/28/2020. The patient presents today reporting that her skin is feeling much better. She is in less pain. The patient's review of systems is positive for some continued tenderness over the skin but is otherwise noncontributory. She denies nausea, vomiting, fevers, chills, night sweats, diplopia, headaches, anxiety or depression, anorexia, weight loss, visual disturbances, chest pain, urinary or bowel difficulties, bone pain, or neurological problems. PHYSICAL EXAMINATION: The patient's skin appears to be healing nicely. There are no moist desquamation areas at present. It all appears to be dry desquamation. There is some tanning present. The remainder of her physical exam remains unchanged. The patient has resumed radiation today.
--- NOTE | 2020-02-06 11:52 | RADONC ---
RADIATION ONCOLOGY SIMULATION NOTE DATE: 02/05/2020 CHART NUMBER: [id number] SIMULATION NOTE: Ms. Dennis was taken to the linear accelerator today for clinical setup of her electron beam scar boost. Setup was accomplished without difficulty or discomfort. Radiation treatment planning is underway and radiation treatments will begin subsequently. An immobilization device was created and will be used throughout the course of treatment. It was created without difficulty or discomfort. I was physically present throughout the course of clinical setup simulation.
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
--- NOTE | 2020-02-18 14:33 | RADONC ---
RADIATION ONCOLOGY PROGRESS NOTE DATE: 02/18/2020 CHART NUMBER: [id number] PROGRESS NOTE: Ms. Dennis is presently at a dose of 5400 cGy to her left chest wall scar and is tolerating treatments quite well at this point with no significant difficulties related to her radiation therapy. She does have a little nauseousness now and then. REVIEW OF SYSTEMS: The patient's review of systems is noncontributory. Denies nausea, vomiting, fevers, chills, night sweats, diplopia, headaches, anxiety or depression, anorexia, weight loss, visual disturbances, chest pain, urinary or bowel difficulties, bone pain, or neurological problems. PHYSICAL EXAMINATION: Physical exam was deferred at this time secondary to COVID-19 precautions. ASSESSMENT: The patient is tolerating treatments quite well and is scheduled for completion this week.
--- NOTE | 2020-02-22 08:43 | RADONC ---
RADIATION ONCOLOGY TREATMENT SUMMARY DATE: 02/21/2020 CHART NUMBER: [id number] DIAGNOSIS: Left breast cancer. STAGE: IIIC, T4d, N3, M0, poorly differentiated, grade 3, ER negative, IL negative, HER2/russ negative. ECOG PERFORMANCE STATUS: 0 TREATMENT SUMMARY: Ms. Dennis is a very pleasant 44-year-old white female with the diagnosis of a clinical stage IIIC, cT4d, cN3, cM0 inflammatory breast carcinoma which was ER negative, IL negative and HER2 negative who presented to us status post neoadjuvant chemotherapy followed by left modified radical mastectomy and axillary lymph node dissection for consideration of postoperative radiation therapy in an attempt to achieve local control. We treated the patient to her left chest wall for a total dose of 5040 cGy delivered in 28 fractions of 180 cGy each over 51 elapsed days from 12/25/2019 through 02/14/2020. The patient's left chest wall was treated on a linear accelerator utilizing 6 MV photon beam via IMRT/IGRT. Following completion of 5040 cGy to the entire chest wall and lymph node drainage sites, we subsequently boosted the scar area for an additional 900 cGy delivered in five fractions of 180 cGy each over six elapsed days from 02/15/2020 through 02/21/2020. This brought the scar area to a total dose of 5940 cGy delivered in 33 fractions over 57 elapsed days from 12/25/2019 through 02/21/2020. Ms. Dennis tolerated her treatments quite well and was able to complete therapy as prescribed without interruption. I have scheduled the patient to see me again in 1 month for further followup. She will also continue to be followed by her other physicians as well. Thank you for allowing us to participate in the care of this very pleasant woman. If I could be of any further assistance or provide you with any information, please free to contact me at anytime. cc: [facility] Evette Meyer MD
== END 2020-02-26 ==
LOC: M ONCR 10:29
PROVIDERS: ATTEND Radiology Radiation Oncology
DX: C50.912 Malignant neoplasm of unspecified site of left female breast (principal)

== ENCOUNTER → 2020-04-09 | Outpatient (CLI) | payer OTHER ==
[~2020-04-09] MED LIST changes: +CAPE1TAB2 PO
--- NOTE | 2020-04-13 14:25 | RADONC ---
RADIATION ONCOLOGY FOLLOWUP NOTE DATE: 04/09/2020 This is a telemedicine visit. The patient was informed of the risks including security breech, technological failure, inability to perform a comprehensive physical exam which could delay or prevent an accurate diagnosis, and potential complications from treatment decisions rendered over a telemedicine platform. The patient understands and consented to the use of telehealth services phone only. CHART NUMBER: [id number] DIAGNOSIS: Left breast cancer. STAGE: III C, T4d, N3, M0, poorly differentiated, grade 3, ER negative, SC negative, HER2/russ negative. ECOG PERFORMANCE STATUS: 0 FOLLOWUP NOTE: Ms. Dennis is a very pleasant 44-year-old white female with the diagnosis of a clinical stage III C, cT4d, cN3, cM0 inflammatory left breast carcinoma which was ER negative, SC negative and HER2/russ negative who is presenting to us today for routine followup visit via telephone consultation 1 month post completion of external beam radiation therapy. The patient presents today reporting that she is doing quite well. She is continuing with her chemotherapy with Dr. Meyer and indeed has just had a followup visit with her today. She reports that she is another 6 months of systemic therapy and will be continuing her routine followup with the [facility] office. REVIEW OF SYSTEMS: The patient's review of systems is noncontributory. Denies nausea, vomiting, fevers, chills, night sweats, diplopia, headaches, anxiety or depression, anorexia, weight loss, visual disturbances, chest pain, urinary or bowel difficulties, bone pain, or neurological problems. PHYSICAL EXAMINATION: Physical examination was deferred at this time as this was a telephone consultation. The patient reports that her skin is in excellent condition with just some tanning present but no evidence of moist or dry desquamation. There is no pain or discomfort. The patient reports no other changes on her physical exam. ASSESSMENT: The patient is clinically doing quite well at this time and is under the close management and followup with Dr. Evette Meyer her medical oncologist. In light of this, I have set her up for a routine followup in our office in 6 months' time. She will also continue to be followed by her other physicians as well. cc: [facility] Evette Meyer MD
== END ==
LOC: M ONCR 09:37
PROVIDERS: ATTEND Radiology Radiation Oncology
DX: C50.912 Malignant neoplasm of unspecified site of left female breast (principal)

== ENCOUNTER 2020-05-14 16:11 | Outpatient (CLI) | payer OTHER ==
[~2020-05-14] VITALS: Ht 170.2 cm; Wt 84.0 kg
[2020-05-14 14:20] VITALS: BP 113/53
[~2020-05-14 16:11] MED LIST changes: +LOPE-39 PO
[2020-05-14 16:20] VITALS: BP 113/53
[2020-05-14] MEDS ORDERED: NS 1,000 ML IV ONE (16:30)
[2020-05-14 17:27] VITALS: BP 105/55
[2020-05-14] MEDS ORDERED: SODIUM CHLORIDE 0.9% INJ 10 ML SYR IV PRN (17:30)
[2020-05-15] MEDS ORDERED: SODIUM CHLORIDE 0.9% INJ 10 ML SYR IV SCH (09:00)
[2020-05-19] MEDS ORDERED: CAPE1TAB2 PO (16:21)
[2020-09-16] MEDS ORDERED: ADV250INH INH (15:07)
[2020-09-26] MEDS ORDERED: ONDA8TAB10 PO (09:33)
[2020-09-26] MEDS ORDERED: PROC10TA4 PO (09:34)
== END 2020-05-14 17:40 | disposition home or self-care (01) ==
LOC: M INFU 16:11
PROVIDERS: ATTEND Internal Medicine Medical Oncology
DX: E86.0 Dehydration (principal); C50.919 Malignant neoplasm of unspecified site of unspecified female breast; Z88.0 Allergy status to penicillin; Z88.2 Allergy status to sulfonamides; Z88.6 Allergy status to analgesic agent
CPT/HCPCS: 96360; G0463; J1642

== ENCOUNTER → 2020-05-15 | Outpatient (CLI) | payer OTHER ==
[~2020-05-15] MED LIST changes: +ACET-897 PO; +ALBU8.5H INH; +DOCU100C16 PO; +ISOVUE-370 76% 100ML VIAL As Ordered ONE; +OXYC-517 PO
--- NOTE | 2020-05-15 10:51 | REP ---
Clinical: Breast cancer. Technique: Axial contrast enhanced images from the thoracic inlet to the upper abdomen (followed by CT of the abdomen and pelvis) using 100 ml Isovue 370 intravenous contrast material. Coronal and sagittal re-formations obtained. Comparison: 10/15/2019. Findings: The lung vila demonstrate very subtle small reticulonodular and alveolar infiltrates primarily involving the left upper lobe, but also to some extent scattered bilaterally and concerning for acute pneumonitis versus early lymphangitic carcinomatosis. Focal area of linear scarring involving the right hemithorax remains stable. No effusion. No pneumothorax. No obvious adenopathy. Postsurgical changes including volume loss and mild mediastinal shift to the right hemithorax again noted and stable. Evidence for prior left mastectomy and right mammoplasty. [id number]-[id number] identified with tip in the SVC/right atrium. Surrounding musculoskeletal structures without obvious focal abnormality. Impression: 1. Very subtle scattered small reticulonodular and alveolar infiltrates as described above. Differential diagnosis includes acute pneumonitis and early lymphangitic carcinomatosis. 2. Stable postsurgical changes and scarring. Electronically Signed by Fabian Mayers MD 05/15/2020 10:43 A
--- NOTE | 2020-05-15 10:56 | REP ---
Clinical: Breast cancer. Technique: Axial contrast enhanced images from the lung bases to the pubic symphysis using oral (per protocol) and 100 ml Isovue 370 intravenous contrast material with coronal and sagittal re-formations. Comparison: 10/15/2019. Findings: Mild fatty infiltration to the liver suggested without focal hepatic lesion identified. Spleen, pancreas, gallbladder, bilateral adrenal glands and kidneys are normal. The enteric system is without obstruction or acute inflammatory process. Pelvis demonstrates normal bladder and age-appropriate uterus/adnexa. No ascites. No free air. No adenopathy. Abdominal aorta and vasculature appear normal. Musculoskeletal structures are grossly within normal limits and without obvious focal osseous abnormality. Impression: 1. Mild hepatic steatosis. 2. No evidence for metastatic disease. 3. No acute abdominopelvic pathology appreciated. Electronically Signed by Fabian Mayers MD 05/15/2020 10:47 A
== END ==
LOC: M RAD 08:50
PROVIDERS: ATTEND Internal Medicine Medical Oncology
DX: N64.4 Mastodynia (principal); C50.919 Malignant neoplasm of unspecified site of unspecified female breast
CPT/HCPCS: 71260; 74177; Q9967

== ENCOUNTER → 2020-07-31 | Outpatient (CLI) | payer OTHER ==
[~2020-07-31] MED LIST changes: -ALBU8.5H INH
--- NOTE | 2020-08-26 15:14 | REP ---
CONTRAST ENHANCED CHEST CT CLINICAL: Breast cancer followup. TECHNIQUE: Axial contrast enhanced images from the thoracic inlet to the upper abdomen using 75 mL of Isovue-370 intravenous contrast material with coronal and sagittal reformations. COMPARISON: 05/15/2020. FINDINGS: The patient is noted to be status post total left mastectomy. An Infusaport is identified with tip extending into the right atrium. A right breast implant is noted and appears stable. Findings suggest prior right thoracic surgery with volume loss and mild ipsilateral mediastinal shift, which is unchanged from prior examination. There is associated scarring at the right lung base, which remains stable. The left hemithorax demonstrates chronic subpleural mild thickening and nodularity along the anterior margin of the left upper lobe and lingula, which may be secondary to prior surgery and radiation therapy. These findings remain stable. The previously noted subtle reticular nodular interstitial infiltrates involving the left upper lobe have resolved. No acute consolidation, nodule, or mass lesion is appreciated to suggest metastatic disease. No effusion. No pneumothorax. Tracheobronchial tree is patent. Further evaluation of the mediastinum demonstrates normal stable thoracic aorta and pulmonary vasculature. No cardiomegaly or pericardial effusion. No obvious adenopathy noted. The osseous structures are intact and without focal abnormality. Limited upper abdomen demonstrates normal bilateral adrenal glands. IMPRESSION: * Chronic stable changes as described above. * The previously noted reticular nodular interstitial infiltrates involving the left hemithorax have resolved. * No acute mediastinal or pleural parenchymal process appreciated. No evidence for metastatic disease. MTDD
== END ==
LOC: M RAD 10:03
PROVIDERS: ATTEND Specialist
DX: Z85.3 Personal history of malignant neoplasm of breast (principal)
CPT/HCPCS: 71260; Q9967

== ENCOUNTER → 2020-08-12 | Outpatient (CLI) | payer OTHER ==
[~2020-08-12] MED LIST changes: -ISOVUE-370 76% 100ML VIAL As Ordered ONE
--- NOTE | 2020-08-28 13:23 | REP ---
WHOLE BODY RADIONUCLIDE BONE SCAN HISTORY: Breast carcinoma. TECHNIQUE: 21.6 mCi of Technetium-99m MDP is injected and standard whole body bone scan imaging is acquired. SCINTIGRAPHIC FINDINGS: There is a normal distribution of skeletal tracer with uptake in bilateral kidneys and in the urinary bladder. There is no abnormal or focal uptake in the skeletal system to suggest metastatic disease. IMPRESSION: Negative whole body bone scan. MTDD
== END ==
LOC: M RAD 08:04
PROVIDERS: ATTEND Specialist
DX: C50.919 Malignant neoplasm of unspecified site of unspecified female breast (principal)
CPT/HCPCS: 78306; A9503

== ENCOUNTER 2020-09-19 09:20 | Inpatient (IN) | payer OTHER ==
[~2020-09-19] VITALS: Ht 170.2 cm; Wt 81.2 kg
[2020-09-19] VITALS (20 sets, daily range): BP systolic 105–156; BP diastolic 62–84
[2020-09-19] MEDS: MOM 30ML SUSPENSION UDC PO SCH (09:00)
[2020-09-19] MEDS: PANTOPRAZOLE 40MG TAB (PROTONIX) PO SCH (09:00)
[~2020-09-19 09:20] MED LIST changes: -ACET-897 PO; -DOCU100C16 PO; -OXYC-517 PO
[2020-09-19] MEDS ORDERED: dexameTHASONE 20MG/5ML VIAL (J1100 PER 1MG) IV ONE (10:15)
[2020-09-19] MEDS: COMBIVENT RESPIMAT 100-20MCG INHALER 4GM INH SCH ×3 (10:20→11:14)
--- NOTE | 2020-09-19 10:33 | REP ---
INDICATION: DYSPNEA/COUGH COMPARISON: 12/29/2019 TECHNIQUE: Portable upright view of the chest FINDINGS: Large left pleural effusion with presumed underlying passive atelectasis/partial collapse. Right lower lobe opacity may reflect a layering effusion and/or atelectasis as well. No pneumothorax. The mediastinum is incompletely evaluated due to overlying opacities. Qzovyo-F-Skac identified with tip in the right atrium. Skeletal structures are intact. IMPRESSION: Large left pleural effusion. Possible layering right effusion. Bibasilar opacities suggesting atelectasis and possible left lower lobe collapse. <Electronically signed by Fabian Mayers > 09/19/20 1025
[2020-09-19 10:55] LABS: BASO % 0.3 % (0.0-1.0); EOS # 0.4 10^3/uL (0.0-0.5); HEMATOCRIT 37.2 % (36.0-47.0); HEMOGLOBIN 12.5 g/dl (12.0-15.5); LYMPH # 0.8 10^3/uL (1.5-5.0); LYMPH % 11.1 % (24.0-44.0); MEAN CORPUSCULAR HEMOGLOBIN 34.2 pg (27.0-33.0); MEAN CORPUSCULAR HGB CONC 33.6 g/dl (32.0-36.5); MEAN CORPUSCULAR VOLUME 101.9 fl (80.0-96.0); MONO # 0.6 10^3/uL (0.0-0.8); MONO % 8.1 % (0.0-5.0); NEUTROPHILS # 5.2 10^3/uL (1.5-8.5); NEUTROPHILS % 75.1 % (36.0-66.0); PLATELET COUNT, AUTOMATED 237 10^3/uL (150-450); RED BLOOD COUNT 3.65 10^6/uL (4.00-5.40); WHITE BLOOD COUNT 6.9 10^3/uL (4.0-10.0)
[2020-09-19 11:08] LABS: INR 1.01; PROTHROMBIN TIME 13.5 SECONDS (12.5-14.3)
[2020-09-19 11:33] LABS: ALBUMIN 3.3 GM/DL (3.2-5.2); ALT/SGPT 20 U/L (12-78); BILIRUBIN,DIRECT 0.2 MG/DL (0.0-0.2); BILIRUBIN,TOTAL 0.8 MG/DL (0.2-1.0); BLOOD UREA NITROGEN 7 MG/DL (7-18); CALCIUM LEVEL 8.9 MG/DL (8.5-10.1); CARBON DIOXIDE LEVEL 25 MEQ/L (21-32); CHLORIDE LEVEL 104 MEQ/L (98-107); CK-MB VALUE MASS < 1.0 NG/ML (<3.6); CPK CREATINE PHOSPHOKINASE 78 U/L (26-192); CREATININE FOR GFR 0.66 MG/DL (0.55-1.30); GLOMERULAR FILTRATION RATE > 60.0 (>58); GLUCOSE, FASTING 95 MG/DL (70-100); MB/CK RELATIVE INDEX 1.28 (< OR =4); POTASSIUM SERUM 3.9 MEQ/L (3.5-5.1); SODIUM LEVEL 137 MEQ/L (136-145); TOTAL PROTEIN 6.7 GM/DL (6.4-8.2)
[2020-09-19 11:34] LABS: NT-PRO BNP 38 PG/ML (<125); THYROXINE (T4) 14.7 UG/DL (4.5-12.0); TROPONIN I < 0.02 NG/ML (< 0.10)
[2020-09-19] MEDS ORDERED: ISOVUE-370 76% 100ML VIAL As Ordered ONE (11:45)
--- NOTE | 2020-09-19 12:55 | REP ---
INDICATION: shortness of breath, cancer, effusions COMPARISON: 07/31/2020 TECHNIQUE: Axial contrast enhanced images from the thoracic inlet to the upper abdomen using pulmonary embolus technique with multiplanar re-formations. 100 ml Isovue 370 intravenous contrast material administered without complication. This CT examination was performed using the following dose reduction techniques: Automated exposure control, adjustment of mA and/or kv according to the patient's size, and use of iterative reconstruction technique. FINDINGS: Satisfactory enhancement of the pulmonary vasculature is achieved and no filling defects are identified to suggest pulmonary embolus. Thoracic aorta is normal and without aneurysm or dissection. No cardiomegaly or pericardial effusion identified. There is a large left pleural effusion along with left upper lobe atelectasis and left lower lobe partial collapse. There is mild contralateral mediastinal shift towards the right hemithorax. The right lung demonstrates patchy ground-glass infiltrates primarily noted in the right upper lung zone as well as right basilar atelectasis and smaller patchy airspace disease. No obvious adenopathy identified. The osseous structures are intact and without focal abnormality. Evidence for prior mastectomy with right breast implant noted. IMPRESSION: 1. No pulmonary embolus. 2. Large left pleural effusion with left upper lobe atelectasis and left lower lobe collapse as well as patchy ground-glass opacities and alveolar infiltrates noted in the aerated left upper lobe and right lung as well as right basilar atelectasis. <Electronically signed by Fabian Mayers > 09/19/20 [id number]
[2020-09-19] MEDS ORDERED: ACETAMINOPHEN TAB 650MG DOSE (2X325MG) PO PRN (14:00)
[2020-09-19] MEDS ORDERED: KCL 20MEQ IN D5/NS 1000ML 1,000 ML IV SCH (14:00)
[2020-09-19] MEDS ORDERED: BISACODYL 10 MG SUPP PR PRN (14:00)
[2020-09-19] MEDS ORDERED: ONDANSETRON 4MG/2ML VIAL IV PRN (14:00)
[2020-09-19] MEDS ORDERED: NORCO, ANEXSIA 5/325MG TABLET (HYDROcodone/ACETAMINOPHEN) PO PRN (14:00)
[2020-09-19] MEDS ORDERED: PERCOCET 5MG/325MG TAB PO PRN (14:00)
[2020-09-19] MEDS ORDERED: LEVALBUTEROL 1.25 MG/0.5 ML CONCENTRATE NEB NEB PRN (14:00)
[2020-09-19] MEDS ORDERED: ADV250INH INH (14:18)
[2020-09-19 14:25] LABS: LDH LACTATE DEHYDROGENASE 270 U/L (84-246)
[2020-09-19] MEDS ORDERED: MIDAZOLAM INJ 2MG/2ML VIAL (J2250 PER 1MG) As Ordered ONE (14:58)
[2020-09-19] MEDS ORDERED: flumazeniL 0.5 MG/5 ML VIAL As Ordered ONE (14:58)
[2020-09-19] MEDS ORDERED: LIDOCAINE 1% MDV 20ML VIAL As Ordered ONE (14:58)
[2020-09-19] MEDS: KETOROLAC 30 MG/ML 1ML VIAL IV SCH ×2 (15:00→20:01)
[2020-09-19] MEDS ORDERED: MIDAZOLAM INJ 2MG/2ML VIAL (J2250 PER 1MG) IV STA ×2 (16:22→16:23)
--- NOTE | 2020-09-19 17:14 | REP ---
INDICATION: s/p chest tube insertion COMPARISON: 09/19/2028 at 10:17 a.m. TECHNIQUE: Portable semi upright view of the chest FINDINGS: Left-sided chest tube is appreciated. The previously noted large left effusion has essentially been relieved and only a small residual hydropneumothorax is suspected along with left basilar atelectasis. Right basilar opacity suggest elements of atelectasis. Hsowzq-O-[id number] identified with tip in the right atrium. Skeletal structures are intact. Cardiac silhouette is grossly normal. IMPRESSION: Left chest tube with near complete resolution of the previously noted large left effusion and small residual hydropneumothorax at the base along with left basilar atelectasis. Mild right basilar atelectasis noted. <Electronically signed by Fabian Mayers > 09/19/20 [id number]
[2020-09-19 17:42] LABS: PH BODY FLUID 7.465 UNITS (NOT ESTABLISHED); SOURCE, BODY FLUID pH PLEURAL
[2020-09-19] MEDS: LEVALBUTEROL 1.25 MG/0.5 ML CONCENTRATE NEB NEB SCH ×2 (17:43→20:00)
[2020-09-19] MEDS ORDERED: LIDOCAINE 1% MDV 20ML VIAL SC ONE (17:45)
[2020-09-19 18:05] LABS: AMYLASE, BODY FLUID 32 U/L (NOT ESTABLISHED); CHOLESTEROL, BODY FLUID 139 MG/DL (NOT ESTABLISHED); LDH, BODY FLUID 804 U/L (NOT ESTABLISHED); SOURCE, BODY FLUID AMYLASE PLEURAL; SOURCE, BODY FLUID CHOL PLEURAL; SOURCE, BODY FLUID GLUCOSE PLEURAL; SOURCE, BODY FLUID LDH PLEURAL; SOURCE, BODY FLUID TRIG PLEURAL; TRIGLYCERIDE, BODY FLUID 37 MG/DL (NOT ESTABLISHED)
[2020-09-19 18:21] LABS: SOURCE, BODY FLUID ALBUMIN PLEURAL; SOURCE, BODY FLUID TOT PROTEIN PLEURAL
[2020-09-19 18:45] LABS: SOURCE, BODY FLUID PLEURAL
[2020-09-19 18:46] LABS: APPEARANCE, BODY FLUID CLOUDY (CLEAR); PLEURAL FL COLOR RED (COLORLESS)
[2020-09-19] MEDS: DOCUSATE SODIUM 100 MG CAP PO SCH (20:00)
[2020-09-19] MEDS: HEPARIN SOD (PORCINE) 5000UNITS/ML 1ML VIAL/SYRINGE SC SCH (20:00)
[2020-09-19] MEDS: ADVAIR HFA 115/21MCG INHALER INH SCH (20:15)
--- NOTE | 2020-09-19 20:33 | ECGEPIP ---
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
--- NOTE | 2020-09-19 22:40 | HPEPDOC ---
General Date of Admission Sep 19, 2020 at 13:53 Date of Service: Sep 19, 2020 Chief Complaint The patient is a 45-year-old female admitted with a reason for visit of Pleural Effusion Lt. 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 Patient got a new kitten this month she thinks that she may be a little allergic to it as she would develop rashes at eh the site of the scratches. Today she went to see oncology again today and was found to be relatively hypoxic compared to her previous baseline, sob and wheezing so was sent to the ED for evaluation. CXR and CT angio of chest showed large left pleural effusion and right atelectasis and infiltrates Home Medications Scheduled Salmeterol/Fluticasone (Advair 250-50 Diskus) 1 Each Blst.w.dev, 1 PUFF INH BID, (Reported) Allergies Coded Allergies: aspirin (Verified Allergy, Severe, swollen face and throat, 03/06/19) SWOLLEN FACE AND THROAT ibuprofen (Verified Allergy, Severe, swelling face and throat, 03/06/19) SWOLLEN FACE AND THROAT Penicillins (Verified Allergy, Intermediate, hives, 03/06/19) HIVES Sulfa (Sulfonamide Antibiotics) (Verified Allergy, Intermediate, hives, 03/06/19) HIVES Past Medical History Medical History Left breast inflammatory carcinoma, triple negative, diagnosed January 2019 status post neoadjuvant chemotherapy followed by left modified radical mastectomy and axillary lymph node dissection and postoperative radiation 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 Family History The patient's family history is positive for maternal grandmother and mother wi th skin cancers. Social History * Smoker: former Smoker Alcohol: Denies Drugs: denies A-FIB/CHADSVASC A-FIB History Current/History of A-Fib/PAF?: No Review of Systems Constitutional: Denies: Chills, Fever, Night Sweats Eyes: Denies: Pain, Vision change ENT: Denies: Head Aches, Ear Pain, Dysphagia Skin: Reports: Rash, Itching Pulmonary: Reports: Dyspnea Cardiovascular: Denies: Chest Pain, Palpitations, Orthopnea, Paroxysmal Noc. Dyspnea, Lt Headedness Gastrointestinal: Denies: Nausea, Vomiting, Abdominal Pain, Diarrhea Genitourinary: Denies: Dysuria, Frequency, Incontinence, Retention Hematologic: Denies: Bruising, Bleeding Excessively Physical Examination General Exam: Positive: Alert, Cooperative, No Acute Distress Eye Exam: Positive: PERRLA, Conjunctiva & lids normal, EOMI; Negative: Sclera icteric Neck Exam: Positive: Supple; Negative: JVD, thyromegaly Chest Exam: Positive: Diminished (air entry on the left till mid of chest. ); Negative: Rales, Rhonchi, Wheezing, Other Heart Exam: Positive: Rate Normal, Regular Rhythm, Normal S1, Normal S2; Negative: Murmurs, Rubs Abdomen Exam: Positive: Normal bowel sounds, Soft; Negative: Tenderness, Hepatospenomegaly Extremity Exam: Positive: Normal pulses; Negative: Clubbing, Cyanosis, Edema Skin Exam: Positive: Nl turgor and temperature; Negative: Breakdown, Lesion Vital Signs Vital Signs Date Time Temp Pulse Resp B/P (MAP) Pulse Ox O2 Delivery O2 Flow Rate FiO2 09/19/20 12:35 114 18 94 Room Air 09/19/20 11:01 09/19/20 09:20 98.3 Laboratory Data Labs 24H Laboratory Tests 2 09/19/20 10:43: Immature Granulocyte % (Auto) 0.4, Neutrophils (%) (Auto) 75.1H, Lymphocytes (%) (Auto) 11.1L, Monocytes (%) (Auto) 8.1H, Eosinophils (%) (Auto) 5.0H, Basophils (%) (Auto) 0.3, Neutrophils # (Auto) 5.2, Lymphocytes # (Auto) 0.8L, Monocytes # (Auto) 0.6, Eosinophils # (Auto) 0.4, Basophils # (Auto) 0.0, Nucleated Red Blood Cells % (auto) 0.0, Prothrombin Time 13.5, Prothromb Time International Ratio 1.01, Anion Gap 8, Glomerular Filtration Rate > 60.0, Calcium Level 8.9, Total Bilirubin 0.8#, Direct Bilirubin 0.2, Aspartate Amino Transf (AST/SGOT) 20, Alanine Aminotransferase (ALT/SGPT) 20, Alkaline Phosphatase 161H, Lactate Dehydrogenase 270H, Total Creatine Kinase 78, Creatine Kinase MB < 1.0, Creatine Kinase MB Relative Index 1.28, Troponin I < 0.02, KV-Bzm-J-Type Natriuretic Peptide 38, Total Protein 6.7, Albumin 3.3, Albumin/Globulin Ratio 1.0L, Thyroid Stimulating Hormone (TSH) 1.250, Thyroxine (T4) 14.7H CBC/BMP Laboratory Tests 09/19/20 10:43 Assessment/Plan 45 year old woman with inflammatory carcinoma of the left breast, 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 Patient got a new kitten this month she thinks that she may be a little allergic to it as she would develop rashes at eh the site of the scratches. Today she went to see oncology again today and was found to be relatively hypoxic compared to her previous baseline, sob and wheezing so was sent to the ED for evaluation. CXR and CT angio of chest showed large left pleural effusion and right atelectasis and infiltrates Left pleural effusion Dr Castañeda consulted . he will be putting in a chest tube. Left breast cancer tripple negative Has finished all planned treatment in Jul 2020. now with new cervical lymphadenopathy and a rash in the neck Plan / VTE VTE Prophylaxis Ordered?: Yes FRANCISCO SAVAGE MD Sep 19, 2020 14:54
[2020-09-20] VITALS: BP 119/69
[2020-09-20] MEDS ORDERED: SLF 3 ML SYR IV PRN (00:30)
[2020-09-20] MEDS: LEVALBUTEROL 1.25 MG/0.5 ML CONCENTRATE NEB NEB SCH ×4 (02:14→19:42)
[2020-09-20] MEDS: KETOROLAC 30 MG/ML 1ML VIAL IV SCH ×4 (03:53→20:00)
[2020-09-20 04:00] VITALS: BP 126/72
[2020-09-20] MEDS: SLF 3 ML SYR IV SCH ×3 (05:10→21:35)
[2020-09-20 05:42] LABS: ABG BASE EXCESS -1.6 (-2.0-2.0); ABG HCO3 21.7 MEQ/L (22.0-26.0); ABG O2 SATURATION 97.8 % (95.0-99.0); ABG PARTIAL PRESSURE CO2 32.6 mmHg (35.0-45.0); ABG PARTIAL PRESSURE O2 96.1 mmHg (75.0-100.0); ABG STANDARD HCO3 23.2 MEQ/L (22.0-26.0); ABG TOTAL CO2 22.7 MEQ/L (22.0-29.0); ABG pH (ARTERIAL) 7.442 UNITS (7.350-7.450)
[2020-09-20 05:58] LABS: BASO % 0.1 % (0.0-1.0); HEMATOCRIT 37.1 % (36.0-47.0); HEMOGLOBIN 12.6 g/dl (12.0-15.5); LYMPH # 0.4 10^3/uL (1.5-5.0); LYMPH % 4.3 % (24.0-44.0); MEAN CORPUSCULAR HEMOGLOBIN 34.1 pg (27.0-33.0); MEAN CORPUSCULAR VOLUME 100.3 fl (80.0-96.0); MONO # 0.3 10^3/uL (0.0-0.8); MONO % 3.5 % (0.0-5.0); NEUTROPHILS # 8.9 10^3/uL (1.5-8.5); NEUTROPHILS % 91.7 % (36.0-66.0); PLATELET COUNT, AUTOMATED 245 10^3/uL (150-450); WHITE BLOOD COUNT 9.7 10^3/uL (4.0-10.0)
[2020-09-20 06:24] LABS: BLOOD UREA NITROGEN 9 MG/DL (7-18); CALCIUM LEVEL 8.9 MG/DL (8.5-10.1); CARBON DIOXIDE LEVEL 27 MEQ/L (21-32); CHLORIDE LEVEL 106 MEQ/L (98-107); CREATININE FOR GFR 0.72 MG/DL (0.55-1.30); GLOMERULAR FILTRATION RATE > 60.0 (>58); GLUCOSE, FASTING 150 MG/DL (70-100); SODIUM LEVEL 140 MEQ/L (136-145)
[2020-09-20] MEDS: ADVAIR HFA 115/21MCG INHALER INH SCH ×2 (07:26→19:42)
[2020-09-20 08:00] VITALS: BP 132/71
--- NOTE | 2020-09-20 08:05 | REP ---
INDICATION: pleural effusion COMPARISON: 09/19/2020 TECHNIQUE: PA and lateral. FINDINGS: Left chest tube in stable position with decreased very small residual anterobasilar pneumothorax suggested. Underlying left lower lobe atelectasis noted which may be slightly improved. Right lung appears essentially stable with minimal basilar atelectasis again suggested. No new acute pulmonary process identified. Mediastinum is stable. Vzrpph-Z-Zvus identified with tip in the SVC. Visualized cardiac silhouette is normal. Skeletal structures are intact. IMPRESSION: Mildly improving appearance to the left lung base. No new acute process appreciated. <Electronically signed by Fabian Mayers > 09/20/20 0871
[2020-09-20] MEDS: PANTOPRAZOLE 40MG TAB (PROTONIX) PO SCH (08:12)
[2020-09-20] MEDS: DOCUSATE SODIUM 100 MG CAP PO SCH ×2 (08:12→20:00)
[2020-09-20] MEDS: MOM 30ML SUSPENSION UDC PO SCH (08:12)
[2020-09-20] MEDS: HEPARIN SOD (PORCINE) 5000UNITS/ML 1ML VIAL/SYRINGE SC SCH ×2 (08:13→20:00)
[2020-09-20] MEDS: PERCOCET 5MG/325MG TAB PO PRN ×3 (09:46→20:04)
[2020-09-20 12:00] VITALS: BP 121/60
[2020-09-20 16:00] VITALS: BP 116/57
[2020-09-20 20:00] VITALS: BP 131/62
[2020-09-21] VITALS: BP 114/58
[2020-09-21] MEDS: LEVALBUTEROL 1.25 MG/0.5 ML CONCENTRATE NEB NEB SCH ×4 (01:08→19:46)
[2020-09-21] MEDS: KETOROLAC 30 MG/ML 1ML VIAL IV SCH ×4 (03:35→21:28)
[2020-09-21 04:00] VITALS: BP 118/69
[2020-09-21] MEDS: SLF 3 ML SYR IV SCH ×3 (05:34→21:29)
[2020-09-21] MEDS: PERCOCET 5MG/325MG TAB PO PRN (05:52)
[2020-09-21 06:05] LABS: BASO % 0.4 % (0.0-1.0); EOS # 0.1 10^3/uL (0.0-0.5); EOS % 1.1 % (0.0-3.0); HEMATOCRIT 33.4 % (36.0-47.0); HEMOGLOBIN 10.8 g/dl (12.0-15.5); LYMPH # 0.6 10^3/uL (1.5-5.0); LYMPH % 7.1 % (24.0-44.0); MEAN CORPUSCULAR HEMOGLOBIN 33.5 pg (27.0-33.0); MEAN CORPUSCULAR HGB CONC 32.3 g/dl (32.0-36.5); MEAN CORPUSCULAR VOLUME 103.7 fl (80.0-96.0); MONO # 0.5 10^3/uL (0.0-0.8); MONO % 5.4 % (0.0-5.0); NEUTROPHILS # 7.1 10^3/uL (1.5-8.5); NEUTROPHILS % 85.6 % (36.0-66.0); PLATELET COUNT, AUTOMATED 230 10^3/uL (150-450); RED BLOOD COUNT 3.22 10^6/uL (4.00-5.40); WHITE BLOOD COUNT 8.3 10^3/uL (4.0-10.0)
[2020-09-21 06:20] LABS: BLOOD UREA NITROGEN 14 MG/DL (7-18); CALCIUM LEVEL 8.1 MG/DL (8.5-10.1); CARBON DIOXIDE LEVEL 29 MEQ/L (21-32); CHLORIDE LEVEL 109 MEQ/L (98-107); CREATININE FOR GFR 0.66 MG/DL (0.55-1.30); GLOMERULAR FILTRATION RATE > 60.0 (>58); GLUCOSE, FASTING 102 MG/DL (70-100); SODIUM LEVEL 143 MEQ/L (136-145)
[2020-09-21 08:00] VITALS: BP 131/82
--- NOTE | 2020-09-21 08:04 | IPNPDOC ---
Text Note Date of Service The patient was seen on 09/20/20. NOTE Subjective: SOB much improved today. Chest tube in place. 2600 Ml chest tube drainage. Physical Exam: Vitals: as below General: Awake, alert oriented sitting up in bed with no acute distress. Eye Exam: Positive: PERRLA, Conjunctiva & lids normal, EOMI; Negative: Sclera icteric Neck Exam: Positive: Supple; Left post cervical lymphadenopathy Negative: JVD, thyromegaly Chest Exam: Positive: crackles at the right and left base, chest tube on the left. Negative: Rales, Rhonchi, Wheezing, Other Heart Exam: Positive: Rate Normal, Regular Rhythm, Normal S1, Normal S2; Negative: Murmurs, Rubs Abdomen Exam: Positive: Normal bowel sounds, Soft; Negative: Tenderness, Hepatospenomegaly Extremity Exam: Positive: Normal pulses; Negative: Clubbing, Cyanosis, Edema Skin Exam: Positive: Nl turgor and temperature; excoriations and rash around the base of the neck. Negative: Breakdown, Labs and radiology : noted. 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 Patient got a new kitten this month she thinks that she may be a little allergic to it as she would develop rashes at eh the site of the scratches. Today she went to see oncology again today and was found to be relatively hypoxic compared to her previous baseline, sob and wheezing so was sent to the ED for evaluation. CXR and CT angio of chest showed large left pleural effusion and right atelectasis and infiltrates Exudative Left pleural effusion Most probably malignant, gram statin negative awaiting cytology. Chest tube in place pain control with percocet and [place] Inflammatory Left breast cancer tripple negative Has finished all planned treatment in Jul 2020. now with new cervical lymphadenopathy and a rash in the neck and pleural effusion May need cervical lymph node biopsy. COPD/Asthma on advair and combivent. DVT prophylaxis in place. VS,Fishbone, I+O VS, Fishbone, I+O Laboratory Tests 09/19/20 10:43 09/20/20 05:32 Vital Signs Date Time Temp Pulse Resp B/P (MAP) Pulse Ox O2 Delivery O2 Flow Rate FiO2 09/20/20 04:00 95.5 104 22 126/72 (90) 96 Nasal Cannula 4.0 I&O- Last 24 Hours up to 6 AM 09/20/20 07:00 Intake Total 836 ml Output Total 2626 ml Balance -1790 ml FRANCISCO SAVAGE MD Sep 20, 2020 07:38
--- NOTE | 2020-09-21 08:13 | REP ---
INDICATION: pleural effusion COMPARISON: 09/20/2020 TECHNIQUE: PA and lateral. FINDINGS: Left-sided chest tube in stable position. Small residual left pneumothorax cannot be excluded. Left basilar pleuroparenchymal changes suggesting elements of atelectasis and pleural thickening are relatively unchanged. The right hemithorax is stable. Mediastinum and cardiac silhouette are within normal limits and stable. [id number] again identified with tip in the right atrium. Musculoskeletal structures are intact. IMPRESSION: 1. No significant change from prior examination. 2. A small residual left pneumothorax cannot be excluded. 3. Left basilar pleuroparenchymal changes remain essentially stable. No new process identified. <Electronically signed by Fabian Mayers > 09/21/20 0809
[2020-09-21] MEDS: PANTOPRAZOLE 40MG TAB (PROTONIX) PO SCH (08:17)
[2020-09-21] MEDS: DOCUSATE SODIUM 100 MG CAP PO SCH ×2 (08:17→21:29)
[2020-09-21] MEDS: MOM 30ML SUSPENSION UDC PO SCH (08:17)
[2020-09-21] MEDS: HEPARIN SOD (PORCINE) 5000UNITS/ML 1ML VIAL/SYRINGE SC SCH ×2 (08:19→21:29)
[2020-09-21] MEDS: ADVAIR HFA 115/21MCG INHALER INH SCH ×2 (09:24→19:44)
--- NOTE | 2020-09-21 11:33 | IPNPDOC ---
Text Note Date of Service The patient was seen on 09/21/20. NOTE Subjective: SOB much improved. Chest tube in place. Only 22 ml overnight output from the chest tube. No fever or chills. CXR done this am. Physical Exam: Vitals: as below General: Awake, alert oriented sitting up in bed with no acute distress. Eye Exam: Positive: PERRLA, Conjunctiva & lids normal, EOMI; Negative: Sclera icteric Neck Exam: Positive: Supple; Left post cervical lymphadenopathy Negative: JVD, thyromegaly Chest Exam: Positive: crackles at the right and left base, chest tube on the left. Negative: Rales, Rhonchi, Wheezing, Other Heart Exam: Positive: Rate Normal, Regular Rhythm, Normal S1, Normal S2; Negative: Murmurs, Rubs Abdomen Exam: Positive: Normal bowel sounds, Soft; Negative: Tenderness, Hepatosplenomegaly Extremity Exam: Positive: Normal pulses; Negative: Clubbing, Cyanosis, Edema Skin Exam: Positive: Nl turgor and temperature; excoriations and rash around the base of the neck. Negative: Breakdown, Labs and radiology : noted. 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 Patient got a new kitten this month she thinks that she may be a little allergic to it as she would develop rashes at eh the site of the scratches. Today she went to see oncology again today and was found to be relatively hypoxic compared to her previous baseline, sob and wheezing so was sent to the ED for evaluation. CXR and CT angio of chest showed large left pleural effusion and right atelectasis and infiltrates. Exudative Left pleural effusion 2600 ml drained Most probably malignant, gram stain negative, Aerobic and anaerobic culture negative. awaiting cytology. Chest tube in place, management as per Dr Castañeda. pain control with percocet and [place] Inflammatory Left breast cancer triple negative Has finished all planned treatment in Jul 2020. now with new cervical lymphadenopathy and a rash in the neck and pleural effusion May need cervical lymph node biopsy. COPD/Asthma on advair and combivent. DVT prophylaxis in place. VS,Fishbone, I+O VS, Fishbone, I+O Laboratory Tests 09/21/20 05:38 Vital Signs Date Time Temp Pulse Resp B/P (MAP) Pulse Ox O2 Delivery O2 Flow Rate FiO2 09/21/20 06:24 20 Room Air 09/21/20 04:00 96.5 101 118/69 (85) 100 09/20/20 04:00 4.0 I&O- Last 24 Hours up to 6 AM 09/21/20 06:00 Intake Total 1380 ml Output Total 1617 ml Balance -237 ml FRANCISCO SAVAGE MD Sep 21, 2020 08:13
[2020-09-21 12:00] VITALS: BP 128/66
--- NOTE | 2020-09-21 12:18 | REP ---
INDICATION: status pleural effusion, ? metastatic nodules breast Ca COMPARISON: 09/19/2020, 07/31/2020, 05/15/2020 TECHNIQUE: Axial noncontrast images from the thoracic inlet to the upper abdomen with coronal and sagittal reformations. This CT examination was performed using the following dose reduction techniques: Automated exposure control, adjustment of mA and/or kv according to the patient's size, and use of iterative reconstruction technique. FINDINGS: Previously noted left-sided chest tube has been removed and a miniscule residual left anterobasilar pneumothorax is currently identified along with left basilar/lingular pleuroparenchymal changes. A small residual amount of left pleural fluid in the posterior sulcus is also appreciated. The lung vila demonstrate small scattered patchy ground-glass infiltrates along with few small scattered solid and non solid nodules measuring no greater than 4 mm and which are nonspecific in light of the progressive resolving left-sided reticulonodular infiltrate noted on 05/15/2020. Residual atelectasis and pleuroparenchymal changes primarily noted in the left lower lung zone may obscure more prominent possible nodules. However, no mass lesion is identified. The mediastinum demonstrates stable chronic changes including subtle right-sided mediastinal shift and small amount of pericardial fluid without obvious significant mediastinal/hilar adenopathy. The tracheobronchial tree is relatively patent/normal. An Sowfmi-E-Phjb is identified with its tip in the right atrium. The musculoskeletal structures demonstrate age-related changes without obvious acute osseous abnormality. Evidence for prior bilateral mastectomy and right mammoplasty. Limited upper abdomen demonstrates normal bilateral adrenal glands. IMPRESSION: 1. The recent large left pleural effusion and associated parenchymal changes are significantly improved. The pleural catheter has been removed and only a small amount of residual pleural fluid and minimal anterobasilar pneumothorax is now identified. 2. Scattered small bilateral ground-glass opacities are identified as well as very few small solid and non solid nodules measuring no more than 4 mm are nonspecific and possibly residual sequelae of prior infiltrate. 3. More prominent nodular densities in the left base may be obscured by the residual atelectasis and pleuroparenchymal changes. Follow-up upon resolution may be warranted for more definitive evaluation of possible metastatic disease. <Electronically signed by Fabian Mayers > 09/21/20 [id number]
[2020-09-21 16:00] VITALS: BP 131/82
[2020-09-21 20:00] VITALS: BP 107/59
[2020-09-22] VITALS: BP 113/57
[2020-09-22] MEDS: LEVALBUTEROL 1.25 MG/0.5 ML CONCENTRATE NEB NEB SCH ×2 (02:00→07:55)
[2020-09-22] MEDS: KETOROLAC 30 MG/ML 1ML VIAL IV SCH ×2 (03:50→09:39)
[2020-09-22 04:00] VITALS: BP 102/58
[2020-09-22] MEDS: SLF 3 ML SYR IV SCH (05:13)
[2020-09-22 05:36] LABS: BASO % 0.1 % (0.0-1.0); EOS # 0.2 10^3/uL (0.0-0.5); EOS % 3.2 % (0.0-3.0); HEMATOCRIT 32.3 % (36.0-47.0); HEMOGLOBIN 10.7 g/dl (12.0-15.5); LYMPH # 0.5 10^3/uL (1.5-5.0); LYMPH % 7.3 % (24.0-44.0); MEAN CORPUSCULAR HEMOGLOBIN 33.8 pg (27.0-33.0); MEAN CORPUSCULAR HGB CONC 33.1 g/dl (32.0-36.5); MEAN CORPUSCULAR VOLUME 101.9 fl (80.0-96.0); MONO # 0.6 10^3/uL (0.0-0.8); MONO % 7.4 % (0.0-5.0); NEUTROPHILS # 6.1 10^3/uL (1.5-8.5); NEUTROPHILS % 81.6 % (36.0-66.0); PLATELET COUNT, AUTOMATED 205 10^3/uL (150-450); RED BLOOD COUNT 3.17 10^6/uL (4.00-5.40); WHITE BLOOD COUNT 7.4 10^3/uL (4.0-10.0)
[2020-09-22 05:53] LABS: BLOOD UREA NITROGEN 7 MG/DL (7-18); CALCIUM LEVEL 8.3 MG/DL (8.5-10.1); CARBON DIOXIDE LEVEL 29 MEQ/L (21-32); CHLORIDE LEVEL 108 MEQ/L (98-107); CREATININE FOR GFR 0.65 MG/DL (0.55-1.30); GLOMERULAR FILTRATION RATE > 60.0 (>58); GLUCOSE, FASTING 93 MG/DL (70-100); POTASSIUM SERUM 3.9 MEQ/L (3.5-5.1); SODIUM LEVEL 141 MEQ/L (136-145)
[2020-09-22] MEDS: ADVAIR HFA 115/21MCG INHALER INH SCH (07:54)
[2020-09-22 08:00] VITALS: BP 94/52
--- NOTE | 2020-09-22 08:59 | RO ---
DATE OF OPERATION: 09/19/2020 PRE-PROCEDURE DIAGNOSIS: Pleural effusion, probably malignant, left side. POST-PROCEDURE DIAGNOSIS: Pleural effusion, probably malignant, left side. PROCEDURE: Insertion of left lateral posterior chest tube. SURGEON: Shant Castañeda MD PROCEDURE: Under satisfactory moderate sedation achieved with 3 mg of Versed, the patient was prepped and draped in the usual sterile fashion. Incision site was marked and infiltrated with 1% Lidocaine down to the pleura. Incision was made and the tunnel was created in the chest without difficulty. A #24 chest tube was placed without difficulty. It drained 2500 mL of serosanguinous fluid, more serous than sanguinous. It was sent with a requisite for cultures, cytologies, chemistries and hematologies. Chest tube was secured to the chest wall with #2 Tevdek suture. The patient tolerated the procedure well and a chest x-ray is pending. [facility]
[2020-09-22] MEDS: MOM 30ML SUSPENSION UDC PO SCH (09:00)
[2020-09-22] MEDS ORDERED: SENNA 8.6 MG TAB (SENOKOT) PO SCH (09:00)
[2020-09-22] MEDS ORDERED: SODIUM CHLORIDE 0.9% INJ 10 ML SYR IV PRN (09:30)
[2020-09-22] MEDS: HEPARIN SOD (PORCINE) 5000UNITS/ML 1ML VIAL/SYRINGE SC SCH (09:38)
[2020-09-22] MEDS: PANTOPRAZOLE 40MG TAB (PROTONIX) PO SCH (09:38)
[2020-09-22] MEDS: DOCUSATE SODIUM 100 MG CAP PO SCH (09:38)
[2020-09-22] MEDS ORDERED: OXYC-517 PO (09:41)
[2020-09-22] MEDS ORDERED: ACET-897 PO (09:41)
[2020-09-22] MEDS ORDERED: DOCU100C16 PO (09:41)
--- NOTE | 2020-09-22 11:11 | CR ---
"DATE OF CONSULTATION: 09/19/2020 REASON FOR CONSULTATION: The patient is seen at the request of Dr. Loomis of the emergency room and admitted to the hospitalist service for increasing shortness of breath. HISTORY OF PRESENT ILLNESS: The patient is a 45-year-old white female who has known stage IV breast cancer which dates back to January, when she noticed a mass in her axilla with changes in her left breast. Since then, she has undergone chemotherapy and radiation therapy. She is felt to have an inflammatory breast cancer, stage IIIC, T4d N3 M0 at the time of diagnosis. She underwent a mastectomy and axillary node dissection along with a re-do procedure to extend the margins as they were positive. Over the past week, she has become more progressively shortness of breath. She noticed that about a week ago that if she becomes pressured she has trouble even breathing at rest. She first attributed this to a new kitten that she got two weeks ago which while it plays with her, scratches her. 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 She also notes that every time a cat scratches her, these scratch montero swell and intensely itch. She is attributing her symptoms to the acquisition of the new kitten. She has noted in the last two weeks a new lump in her posterior left neck. She had no fever, chills or sweats. She only has a minimal cough where she produces white sputum. Occasionally it is yellow-tinged. She has chest discomfort on the left side particularly when she takes a deep breath and coughs. There has been no weight loss but she has had decreased appetite over the last few days. She complains of orthopnea, having to raise her head up in bed over the past few days and also awakes at night short of breath over the last few days. PAST MEDICAL ILLNESSES: Asthma. PAST SURGICAL HISTORY: 1. Mastectomy. 2. Wlrcwe-P-Qzhs placement. MEDICATIONS AT HOME: Advair Diskus one puff p.o. b.i.d. ALLERGIES: PENICILLIN, SULFA. HABITS: She smoked 1/2 pack per day for approximately 20 years, quit when she received a diagnosis of her breast cancer. Alcohol only occasionally and rarely. Denies illicit drug use. EXPOSURE: She has three cats including a new kitten. There are no known exposures to tuberculosis. 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 No asbestos exposure. REVIEW OF SYSTEMS: Constitutional: See HPI. Eyes: Conjunctivitis secondary to her cats, otherwise appropriate without amaurosis fugax. Mouth: She has her own teeth. Respiratory: See HPI. Cardiac: Without prior myocardial infarctions and limiting claudication or peripheral edema. GI: Without nausea, vomiting, diarrhea, constipation, melena, hematochezia, hematemesis or abdominal pain. : Without dysuria, hematuria or prior history of renal stones. Endocrine: Without diabetes, without thyroid disease. Neurologic: Without paresthesias, paralysis or prior seizures. Psychiatric: Without pathologic depressions, anxieties or psychoses. Psychiatric: Without pathological anxieties, depression or psychosis. Hematologic: Without prolonged bleeding times. FAMILY HISTORY: Not pertinent to the acute situation. | PHYSICAL EXAMINATION: Well-developed, well-nourished white female with appropriate anxiety with shortness of breath. Vital signs: Temperature is 97.7, pulse 124 in sinus rhythm, respiratory rate 19 without the use of accessory muscles. She is 93% saturated on room air and blood pressure is 156/73. Eyes: Pupils equal, round and reactive to light. Extraocular muscles are intact. sclerae nonicteric. Nose: Without deformity. Mouth shows mucous membranes to be pink and moist., lips and commissures without lesions. There is no thrush. Head is normocephalic. Neck is supple. There is no jugular venous distention. No subcutaneous emphysema. Trachea is midline. She has posterior triangle lymphadenopathy on the left. There are no bruits. There is no thyromegaly. Lungs show markedly decreased breath sounds on the left with E to A egophony at the base. Percussion is dull over almost the entire lung field. Right lung shows scattered rhonchi which clear with coughing. Percussion is further documented on the right. Cardiac examination: Without murmurs, clicks, gallops or rubs. I cannot feel a PMI . S1, S2 are normal. Abdomen is soft, nontender. Bowel sounds are positive. There is no hepatomegaly, no CVA tenderness. Extremities show no pretibial edema, no calf tenderness or differential swelling of the upper extremities. Skin: Warm, dry and perfused without cyanosis or mottling including that of nail beds and knees. Neuro shows cranial nerves II-XII intact with gross motor, gross sensation intact. Gait is not tested. Psychiatric: Awake, alert and oriented x3 with appropriate mood and affect during conversation INVESTIGATIONS: Her white count was is 6.9 with a hemoglobin and hematocrit of 12.5 and 37.2 with a platelet count of 207. Differential shows 75% neutrophils, 11% lymphocytes, 8% monocytes. There are no mature forms of toxic granulations. Her electrolytes are normal. BUN and creatinine are 7 and 0.66, a glucose of 95 and a calcium of 8.9. Corresponding albumin is 3.3. AST and ALT are normal. PT/INR is 13.5 and 1.01 respectively. Her chest x-ray shows opacity in the left lower hemithorax. She has what looks to be a shift to the right. X-rays done portably. There is a definite meniscus on the portable film. CT angio does not show a pulmonary embolism but confirms the large pleural effusion, shifting the mediastinum to the right. There is an underlying lung compression in the left lower lobe. I do not see appreciable lymphadenopathy in the mediastinum. She has vascular compression secondary to pleural effusion on the left. It looks to be a ground-glass lesion in the right upper lobe. I see no other solid masses. There is an Acgida-I-Cxjv in place on the right through the internal jugular vein. IMPRESSION: 1. Large left-side pleural effusion. 2. Known stage IV breast cancer. 3. Prior history of asthma. 4. Cat allergies. PLAN - DISCUSSION: While the patient is hoping that the pleural effusion is secondary to her cat allergies and/or infection, there is no indication that she has syncytial infective infection signs including fevers, chills or sweats. I fear this is going to turner off to be a malignant pleural effusion or breast cancer. While I do not see masses or lumps and bumps on her pleural surface, they could be hidden behind the accumulated fluid. I will place a chest tube at this point in time. She is being seen by oncology as an outpatient. I am not sure what other chemotherapeutic strategies are available and I will defer to oncology. She states that she has finished her chemotherapy. This could also be a radiation serositis. MTDD"
--- NOTE | 2020-09-22 11:13 | IPN ---
DATE: 09/20/2020 SUBJECTIVE: Ms. Dennis had a comfortable night. Her pain is being well- controlled at the chest tube insertion site. OBJECTIVE: VITAL SIGNS: Show a T-max of 97.6 with a heart rate that ranges between 104 and 126 in sinus rhythm. Respiratory rate of 17-20 without the use of accessory muscles. She was 98% saturated now on 2 liters nasal cannula and her blood pressure is ranging between 119/69 to 132/71. INTAKE AND OUTPUT: Over the past 24 hours has been recorded as 536 in and 2600 out with all of the output being from the chest tube. In the last 10 hours, she has put out 26 mL and there is no air leak. She weighs 81 kg today compared to 82.5 kg yesterday. RESPIRATORY: She now has equal breath sounds on either side. There are slightly decreased breath sounds on the right side at the very base, however. Percussion notes are full to the diaphragm. CARDIAC: Without murmurs, clicks, gallops, or rubs. She is tachycardic. S1 and S2 are normal. I cannot feel her point of maximal impulse (PMI). ABDOMEN: Soft and nontender. Bowel sounds are positive. There is no hepatomegaly. No costovertebral angle (CVA) tenderness. EXTREMITIES: Show no pretibial edema. No calf tenderness. No differential swelling of the upper extremities. SKIN: Warm, dry, and perfused without cyanosis or mottling, including that of the nail beds and knees. NECK: Supple. There is no jugular venous distention. No subcutaneous emphysema. Trachea is midline. MOUTH: Shows the mucous membranes to be pink and moist. Lips and gums without lesions and no thrush. EYES: Show her pupils equal and reactive. Extraocular movements are intact. Sclerae nonicteric. NEUROLOGIC: Shows II though XII intact. Normal gross motor, gross sensation intact. Gait is not tested. PSYCHIATRIC: Shows her to be awake, alert, and oriented x3 with appropriate mood and affect and conversational. LABORATORY DATA: Her white count today is 9.7 with hemoglobin and hematocrit of 12.6 and 37.1. Platelet count is 245,000. Differential shows 91% neutrophils, 4% lymphocytes, 3% monocytes. There are no immature forms or toxic granulations. Her electrolytes are normal with a BUN and creatinine of 9 and 0.72 with a glucose of 115 and a calcium of 8.9. Her pleural fluid has come back with a pH of 7.46 with glucose of 86, LDH of 804 with a corresponding LDH in the serum of 270. Her total protein is 5.0 with a corresponding total protein in the serum of 6.7. She has 660 white cells, 56% of which are mononuclear or lymphocytes and 43% are neutrophils. This therefore, looks like an exudative predominantly lymphocytic pleural effusion and I suspect this is going to sheet turner to be malignant. Bacteriology shows no organisms and pathology is pending. IMAGING: Her chest x-ray today now shows the lungs fully expand to the chest wall. The mediastinum is back to the midline. She does have a haze over the right hemithorax. Left hemithorax looks clear and the atelectasis that we saw yesterday on the portable chest film just after chest tube insertion is resolving. Lateral film shows some fluid in the major fissure and also in the minor fissure. There may be some blunting of the costophrenic angle on the right on the lateral film. IMPRESSION: 1. Large pleural effusion probably malignant, left side. 2. Stage IV breast cancer. 3. Asthma. PLAN AND DISCUSSION: I will keep her chest tube in for today. We will wean her oxygen. We will continue to follow her x-rays. DARRELL
--- NOTE | 2020-09-22 11:15 | IPN ---
DATE: 09/21/2020 SUBJECTIVE: Ms. Dennis is breathing much better today and she is in bright spirits. Her pain is being well-controlled at the chest tube insertion site. OBJECTIVE: VITAL SIGNS: Show a T-max of 97.7 with a heart rate that ranges between 97 and 88 in a sinus rhythm. Respiratory rate of 18-20 without the use of accessory muscles. She was 98% to 100% saturated on room air and her blood pressure is ranging between 131/82 to 114/58. INTAKE AND OUTPUT: Over the past 24 hours has been recorded as 1380 in and 1321 out with 71 mL out the chest tube. There is no air leak. She weighs 81 kg today, which is the same as yesterday. RESPIRATORY: Her lungs show normal fascicular sounds with some rales in the left lower hemithorax. Percussion notes are full to the diaphragm. CARDIAC: Without murmurs, clicks, gallops, or rubs. I cannot feel her point of maximal impulse (PMI). S1 and S2 are normal. ABDOMEN: Soft and nontender. Bowel sounds are positive. There is no hepatomegaly. No costovertebral angle (CVA) tenderness. EXTREMITIES: Show trace pretibial edema. No calf tenderness. No differential swelling of the upper extremities. SKIN: Warm, dry, and perfused without cyanosis or mottling, including that of the nail beds and knees. NECK: Supple. There is no jugular venous distention. No subcutaneous emphysema. Trachea is midline. MOUTH: Shows the mucous membranes to be pink and moist. Lips and gums without lesions and no thrush. EYES: Show her pupils equal and reactive. Extraocular movements are intact. Sclerae nonicteric. NEUROLOGIC: Shows II though XII intact. Normal gross motor, gross sensation intact. Gait is intact. PSYCHIATRIC: Shows her to be awake, alert, and oriented x3 with appropriate mood and affect and conversational. LABORATORY DATA: Her white count today is 8.3 with hemoglobin and hematocrit of 10.8 and 33.4, which is all the way down from 12.6 and 37.1. Platelet count is 230,000 stable and differential shows 85% neutrophils, 7% lymphocytes, and 5% monocytes. There are no immature forms or toxic granulations. Chemistries today show essentially normal electrolytes with a BUN and creatinine of 14 and 0.66, glucose of 102, and a calcium of 8.1. IMAGING: Her chest x-ray today shows the left lung fully expands to the chest wall. There is some residual plate atelectasis, which is improving. Chest tube in good place. She still has a diffuse haze in the inferior portion of the right hemithorax, which I suspect is some accumulated fluid. I will obtain a CT of her chest today to look for underlying pulmonary nodules in the expanded lung. IMPRESSION: 1. Left pleural effusion probably malignant. 2. Probable small right pleural effusion. 3. Stage 4 breast cancer. 4. Asthma. PLAN AND DISCUSSION: As noted above, I will obtain a CT scan of her today. I will discontinue her chest tube and plan for discharge in the morning. I probably will not have the pathology back tomorrow, but will call the patient as soon as it is back. DARRELL
--- NOTE | 2020-09-22 11:18 | IPN ---
DATE: 09/22/2020 SUBJECTIVE: Ms. Dennis is doing well this morning and she is breathing well. I ordered a CT scan of her yesterday to look for underlying pulmonary masses. I did review the cytology slide with Dr. Schulte of pathology and it is most definitely positive for adenocarcinoma. OBJECTIVE: VITAL SIGNS: Stable with a T-max of 99.3, a heart rate that ranges between 102 and 109 in sinus rhythm, respiratory rate that is a constant 16 without the use of accessory muscles who is 98% saturated on room air, and blood pressure is ranging between 102/58 to 113/57. INTAKE AND OUTPUT: Over the past 24 hours has been recorded as 1880 in and 1122 out for a positivity of 750 mL. Her chest tube catheter was removed yesterday after only draining 22 mL. She weighs 81.2 kg today compared to 81 kg yesterday. RESPIRATORY: Her lungs show equal breath sounds on either side with some scattered rhonchi and rales in the left base. Percussion note is full to the diaphragm. CARDIAC: Without murmurs, clicks, gallops, or rubs. I cannot feel her point of maximal impulse (PMI). S1 and S2 are normal. ABDOMEN: Soft and nontender. Bowel sounds are positive. There is no hepatomegaly. No costovertebral angle (CVA) tenderness. EXTREMITIES: Show no pretibial edema. No calf tenderness. No differential swelling of the upper extremities. SKIN: Warm, dry, and perfused without cyanosis or mottling, including that of the nail beds and knees. NECK: Supple. There is no jugular venous distention. No subcutaneous emphysema. Trachea is midline. She still has the posterior triangle lymphadenopathy on the left. MOUTH: Shows the mucous membranes to be pink and moist. Lips and gums without lesions and no thrush. EYES: Show her pupils equal and reactive. Extraocular movements are intact. Sclerae nonicteric. NEUROLOGIC: Shows II though XII intact. Normal gross motor, gross sensation intact. Gait is not tested. PSYCHIATRIC: Shows her to be awake, alert, and oriented x3 with appropriate mood and affect and conversational. LABORATORY DATA: Her white count today is 7.4 with a hemoglobin and hematocrit of 10.7 and 32.3 essentially unchanged from yesterday with a platelet count of 205,000. Differential shows 81% neutrophils, 7% lymphocytes, and 7% monocytes. There are no immature forms and no toxic granulations. Her electrolytes are essentially normal with a BUN and creatinine of 7 and 0.65, glucose of 93, and a calcium of 8.3. IMAGING: Her chest CT done yesterday looking for potential metastatic pulmonary masses shows multiple ground-glass appearance opacities throughout in the right upper lobe and right lower lobe. She also has the opacities in the left lower lobe and left upper lobe. She still has some residual atelectasis on the left. She has an unusual lobar configuration on the right with what looks to be a very small middle lobe and two lower lobe fissures. The shadow on the chest x-ray can be explained by an increased right atrial size. It is rather unusual in appearance, but it does not look cystic. She has a very small pericardial effusion on the left. CT angio done on admission on September 21, shows the left heart well opacified, as well as the right ventricle. The right atrium is not. There is a central line going through it. I am not at all sure of the diagnostic or therapeutic implications of the increased right atrial size at this point in time. Her dressing has been removed and the wound is clean and dry. As noted above, I went over the cytology slides with Dr. Schulte of pathology and it is definitely positive malignant disease. The cell block is still pending. IMPRESSION: 1. Malignant pleural effusion. 2. Stage 4 metastatic triple negative breast cancer on the left side. 3. Cervical lymphadenopathy probably malignant on the left. 4. Asthma. 5. Shortness of breath. 6. Multiple ground-glass opacities significance unclear. 7. Enlarged right atrium. PLAN AND DISCUSSION: I will have the hospitalist discharge her today. She will return to see me in 10 days with a follow-up chest x-ray. She is to make an appointment with oncology sooner rather than later now. I have informed the patient of the findings, which did not surprise her and she took it in good stride. DARRELL
--- NOTE | 2020-09-22 11:26 | REP ---
INDICATION: pleural effusion. COMPARISON: September 21, 2020. TECHNIQUE: Two views.. FINDINGS: Monitoring electrodes are seen. There is a right-sided Xgcgjk-E-[id number] catheter with its tip in the expected location of the superior vena cava unchanged. In the interval since yesterday's radiograph, the left chest tube has been withdrawn. There is no discernible pneumothorax. There is slight blunting of the left lateral pleural angle and platelike atelectasis is again noted in the left base. There is a ill-defined pleuroparenchymal opacity in the right base obscuring the right heart border unchanged. There is some adjacent atelectasis. There is a peripheral calcification pattern in an augmentation implant in the right breast again noted. The patient is status post left mastectomy.. IMPRESSION: Post chest tube removal. No pneumothorax on the left. Slight blunting of the left pleural angle. Pleuroparenchymal opacity along the right heart border persists. Status post left mastectomy and breast augmentation implant on the right. Right-sided Zwhxtx-Z-Jewb catheter.. <Electronically signed by Helder Hill > 09/22/20 1124
--- NOTE | 2020-09-22 13:31 | DS.PDOC ---
Discharge Summary General Date of Admission Sep 19, 2020 at 13:53 Date of Discharge 09/22/20 Discharge Summary PROCEDURES PERFORMED DURING STAY: [None]. 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 Patient got a new kitten this month she thinks that she may be a little allergic to it as she would develop rashes at the site of the scratches. On 09/19 she went to see oncology again and was found to be relatively hypoxic compared to her previous baseline, Sob x 4 days and wheezing so was sent to the ED for evaluation. CXR and CT angio of chest showed large left pleural effusion and right atelectasis. Exudative Left pleural effusion 2600 ml drained Most probably malignant, gram stain negative, Aerobic and anaerobic culture negative. Cytology prelim positive for malignancy. Chest tube by Dr Castañeda. pain control with tylenol and oxycodone. Inflammatory Left breast cancer triple negative Has finished all planned treatment in Jul 2020. now with new cervical lymphadenopathy and a rash in the neck and pleural effusion Follow up Dr Mullins. I spoke with DR Mullins and he will be setting up an appointment this week for her. COPD/Asthma on advair and combivent. DISCHARGE MEDICATIONS: Please see below. ALLERGIES: Please see below. PHYSICAL EXAMINATION ON DISCHARGE: VITAL SIGNS: Please see below. General: Awake, alert oriented sitting up in bed with no acute distress. Eye Exam: Positive: PERRLA, Conjunctiva & lids normal, EOMI; Negative: Sclera icteric Neck Exam: Positive: Supple; Left post cervical lymphadenopathy Negative: JVD, thyromegaly Chest Exam: Positive: crackles at the right and left base, good air entry. Negative: Rales, Rhonchi, Wheezing, Other Heart Exam: Positive: Rate Normal, Regular Rhythm, Normal S1, Normal S2; Negative: Murmurs, Rubs Abdomen Exam: Positive: Normal bowel sounds, Soft; Negative: Tenderness, Hepatosplenomegaly Extremity Exam: Positive: Normal pulses; Negative: Clubbing, Cyanosis, Edema Skin Exam: Positive: Nl turgor and temperature; excoriations and rash around the base of the neck improved LABORATORY DATA: Please see below. ACTIVITY: [As tolerated]. DIET: As tolerated DISPOSITION: Home, Self-Care. DISCHARGE INSTRUCTIONS: Follow up Dr Mullins. Follow up Dr Castañeda in 10 days with a chest xray DISCHARGE CONDITION: [Stable]. TIME SPENT ON DISCHARGE: 35 minutes. Vital Signs/I&Os Vital Signs Date Time Temp Pulse Resp B/P (MAP) Pulse Ox O2 Delivery O2 Flow Rate FiO2 09/22/20 08:00 98.6 103 20 94/52 (66) 98 Room Air 09/20/20 04:00 4.0 I&O- Last 24 Hours up to 6 AM 09/22/20 06:00 Intake Total 1940 ml Output Total 2000 ml Balance -60 ml Laboratory Data Labs 24H Laboratory Tests 2 09/22/20 05:30: Immature Granulocyte % (Auto) 0.4, Neutrophils (%) (Auto) 81.6H, Lymphocytes (%) (Auto) 7.3L, Monocytes (%) (Auto) 7.4H, Eosinophils (%) (Auto) 3.2H, Basophils (%) (Auto) 0.1, Neutrophils # (Auto) 6.1, Lymphocytes # (Auto) 0.5L, Monocytes # (Auto) 0.6, Eosinophils # (Auto) 0.2, Basophils # (Auto) 0.0, Nucleated Red Blood Cells % (auto) 0.0, Anion Gap 4L, Glomerular Filtration Rate > 60.0, Calcium Level 8.3L CBC/BMP Laboratory Tests 09/22/20 05:30 Microbiology Microbiology 09/19/20 Acid Fast Stain, Received Pending 09/19/20 Mycobacterial Culture, Received Pending 09/19/20 Fungal Smear, Received Pending 09/19/20 Fungal Culture, Received Pending 09/19/20 Gram Stain - Final, Complete 09/19/20 Anaerobic Culture - Final, Complete 09/19/20 Body Fluid Culture - Final, Complete Discharge Medications Scheduled Docusate Sodium (Docusate Sodium) 100 Mg Capsule, 100 MG PO BID Salmeterol/Fluticasone (Advair 250-50 Diskus) 1 Each Blst.w.dev, 1 PUFF INH BID, (Reported) Scheduled PRN Acetaminophen (Tylenol Extra Strength) 500 Mg Tablet, 1,000 MG PO TIDP PRN for PAIN Oxycodone HCl (Oxycodone HCl) 5 Mg Tablet, 1 TAB PO BIDP PRN for SEVERE PAIN (PS 8-10) Allergies Coded Allergies: aspirin (Verified Allergy, Severe, swollen face and throat, 03/06/19) SWOLLEN FACE AND THROAT ibuprofen (Verified Allergy, Severe, swelling face and throat, 03/06/19) SWOLLEN FACE AND THROAT Penicillins (Verified Allergy, Intermediate, hives, 03/06/19) HIVES Sulfa (Sulfonamide Antibiotics) (Verified Allergy, Intermediate, hives, 03/06/19) FRANCISCO WING MD Sep 22, 2020 13:31
[2020-09-23] MEDS ORDERED: SODIUM CHLORIDE 0.9% INJ 10 ML SYR IV SCH (09:00)
== END 2020-09-22 11:59 | disposition home or self-care (01) | DRG 598 ==
LOC: M ED 09:20 → M ED INP 13:53 → ENRESERV 14:12 → M PCU 15:36
PROVIDERS: ADMIT Internal Medicine; ATTEND Thoracic Surgery (Cardiothoracic Vascular Surgery)
PROC: 0W9B30Z Drainage of Left Pleural Cavity with Drainage Device, Percutaneous Approach (ICD-10-PCS; principal; 2020-09-19)
DX: C50.912 Malignant neoplasm of unspecified site of left female breast (principal); J91.0 Malignant pleural effusion; J45.909 Unspecified asthma, uncomplicated; Z88.6 Allergy status to analgesic agent; Z88.2 Allergy status to sulfonamides; Z88.0 Allergy status to penicillin

== ENCOUNTER → 2020-11-13 | Outpatient (CLI) | payer OTHER ==
[~2020-11-13] MED LIST changes: +ACET-897 PO; +ALBU8.5H INH; +DOCU100C16 PO; +OXYC-517 PO
--- NOTE | 2020-11-13 13:25 | REP ---
INDICATION: BREAST CANCER. COMPARISON: Chest CT dated 09/21/2020 and PA and lateral plain film study dated 09/22/2020. TECHNIQUE: Upright PA and lateral chest. FINDINGS: The patient has a right breast implant. This is increases radiodensity where the breast is superimposed over the inferior right lung. This is unchanged from the comparison plain film study. There is a left mastectomy. This is also unchanged. The left costophrenic angle is mildly faced. This may represent a small left pleural effusion. This is unchanged from 09/22/2020. However, the atelectasis noted inferiorly in the left lung on 09/22/2020 has resolved. The left lung is otherwise clear. There is a right IJ [id number]-A-[id number] with the tip in the right atrium, unchanged. The ender, mediastinum, and skeletal structures are are unremarkable. IMPRESSION: Blunting of left costophrenic angle suggestive of a small left pleural effusion. This is unchanged from the comparison studies. Left mastectomy. This is unchanged. Right breast implant increasing radiodensity wears superimposed over the right lung inferiorly. This is unchanged. Right lung is otherwise clear. A right IJ Ozvmrn-Q-Xuvs catheter, unchanged. <Electronically signed by Virgilio Ku > 11/13/20 [id number]
== END ==
LOC: M RAD 12:53
PROVIDERS: ATTEND Specialist
DX: C50.912 Malignant neoplasm of unspecified site of left female breast (principal)

== ENCOUNTER → 2020-11-19 | Outpatient (CLI) | payer OTHER ==
[~2020-11-19] MED LIST changes: +ISOVUE-370 76% 100ML VIAL As Ordered ONE
--- NOTE | 2020-11-19 16:26 | REP ---
INDICATION: AMENORRHEA, UNSPECIFIED COMPARISON: 09/21/2020 TECHNIQUE: Axial contrast enhanced images from the thoracic inlet to the upper abdomen with coronal and sagittal reformations using 75 ml Isovue 370 intravenous contrast material. This CT examination was performed using the following dose reduction techniques: Automated exposure control, adjustment of mA and/or kv according to the patient's size, and use of iterative reconstruction technique. FINDINGS: Pleuroparenchymal changes involving the left hemithorax including pleural thickening, scattered scarring and small residual pleural fluid are identified. Previously noted miniscule left pneumothorax as well as the left basilar and lingular airspace disease appears to be essentially resolved. Linear area of fibrosis/scarring in the right lung is again noted and relatively stable. No significant new area of consolidation, effusion or pneumothorax identified. Mediastinum is stable in appearance including few small lymph nodes measuring up to approximately 11 mm short axis diameter. The osseous structures are relatively intact and without acute process. Gtogch-B-Xsfb identified in the right anterior chest wall with tip in the SVC. Evidence for prior left mastectomy as well as right mammoplasty noted. Limited upper abdomen demonstrates normal bilateral adrenal glands and mild fatty infiltration to the liver. IMPRESSION: 1. Pleuroparenchymal changes involving the left hemithorax as described above include small amount of residual pleural fluid. The previously noted basilar airspace disease and miniscule pneumothorax have resolved. No new significant acute mediastinal or pleuroparenchymal process appreciated. <Electronically signed by Fabian Mayers > 11/19/20 [id number]
== END ==
LOC: M RAD 15:45
PROVIDERS: ATTEND Specialist
DX: C50.919 Malignant neoplasm of unspecified site of unspecified female breast (principal)
CPT/HCPCS: 71260; Q9967

== ENCOUNTER → 2020-12-16 | Outpatient (CLI) | payer OTHER ==
[~2020-12-16] MED LIST changes: -ISOVUE-370 76% 100ML VIAL As Ordered ONE
--- NOTE | 2020-12-17 08:57 | ECHO ---
DATE OF PROCEDURE: 12/16/2020 Age: 45 Gender: Female Height: 170 cm Weight: 86 kg REFERRING PHYSICIAN: Andrea Mullins MD INDICATION: Chemotherapy. MEASUREMENTS: IVS 0.8 cm LV 5.2 cm LVPW 0.9 cm LA 3.1 cm Aorta 3.0 cm IVC 1.7 cm Mitral E wave velocity 60 Mitral A wave 78 E prime septal 6.6 E prime lateral 8.8 FINDINGS: This study is of very limited technical quality. Underlying sinus tachycardia with heart rate between 105 and 110 BPM. Left ventricle is of normal size and overall likely normal contractility based on very limited views. I cannot rule out even substantial wall motion abnormality. Right ventricle was poorly visualized. The left atrium appears normal. The right atrium was poorly seen. Limited views of the aortic and mitral valves appear normal. Pulmonic valve also appears normal. Tricuspid valve was not well seen. Small noncompressive pericardial effusion was noted. Inferior vena cava was normal size. Aortic root is normal. Aortic arch and abdominal aorta were not well seen. Limited Doppler interrogation reveals no aortic stenosis or insufficiency. The same applies for remaining valves. Mitral inflow pattern and tissue Doppler imaging of the mitral annulus revealed grade 1 diastolic dysfunction. CONCLUSIONS: 1. Study is of very limited technical quality, underlying sinus tachycardia. 2. Normal LV size and overall probably normal LV systolic function based on very limited views. Grade 1 diastolic dysfunction. 3. No significant valvular disease. 4. Trace pericardial effusion. 5. Normal central venous pressure, unable to estimate pulmonary artery pressure. MTDD
== END ==
LOC: M CARPUL 08:21
PROVIDERS: ATTEND Specialist
DX: C50.919 Malignant neoplasm of unspecified site of unspecified female breast (principal)

== ENCOUNTER → 2021-01-05 | Outpatient (CLI) | payer OTHER ==
--- NOTE | 2021-01-06 13:49 | REP ---
INDICATION: RESTAGING BREAST CANCER C50.919. Inflammatory carcinoma left breast status post left mastectomy, lymph node dissection with positive margins and re-excision. It chemotherapy. Recent pleural metastatic disease left chest. COMPARISON: Comparison PET-CT study March 13, 2019 and November 19, 2020.. Comparison is more also made with chest CTs the most recent which is from 11/19/2020. TECHNIQUE: 1 hour and 12 minutes following the intravenous injection of a 15.75 mCi dose of F-18 FDG, three-dimensional PET scintigraphy is acquired from the skull base to the proximal thighs. Triplanar noncontrast CT scanning is acquired through the same anatomic range for attenuation correction, and image registration with scan parameters optimized to minimize radiation exposure to the patient. PET scintigraphy and CT datasets were fused and displayed on a workstation with multiplanar and projection display capability. FINDINGS: There is a sub cm hypermetabolic lymph node focus in the left anterior jugular chain at the mandible angle where maximum standard uptake value is 4.39. There is hypermetabolic left supraclavicular lymphadenopathy, maximum standard uptake value 10.78 and 9.11. Right subclavian hypermetabolic adenopathy is seen, 11.58. Left subclavian adenopathy is seen where maximum SUV value in a very small lymph node is 7.26. There is bilateral mediastinal adenopathy and subcarinal adenopathy which is hypermetabolic. Maximum standard uptake value in these lymph nodes ranges from 9.16-12.27. There is left hilar silvino focus of hypermetabolic activity, 7.51. There are several foci of hypermetabolic pulmonary parenchymal uptake, a nodule in the right upper lobe measuring under a cm where maximum SUV value is 3.76. There is a 1 cm nodule in the left lower lobe showing maximum SUV value 3.94. There is an infiltrative process in the right upper lobe where maximum SUV value is 4.68 in a small alveolar infiltrate. In addition, there is multifocal essentially diffuse linear pleural uptake in the left chest. This is most avid in the left lower posterolateral pleural angle where maximum standard uptake value is 67.264-8.02. There is no abnormal hypermetabolic uptake within the abdomen or pelvis. No abnormal skeletal uptake is observed. IMPRESSION: Metastatic uptake pattern including left neck, bilateral subclavian and left supraclavicular, bilateral mediastinal and left hilar adenopathy. There are bilateral nodular foci of hypermetabolic uptake in the lungs as above. There is diffuse pleural hypermetabolic uptake in the left chest. A left mastectomy has been performed in the interval since the prior PET-CT study from 13 March 2019. <Electronically signed by Helder Hill > 01/06/21 [id number]
== END ==
LOC: M PLARAD 11:29
PROVIDERS: ATTEND Specialist
DX: R93.89 Abnormal findings on diagnostic imaging of other specified body structures (principal)
CPT/HCPCS: 78815; A9552

== ENCOUNTER 2021-01-20 07:06 | Day surgery (SDC) | payer OTHER ==
[~2021-01-20] VITALS: Ht 170.2 cm; Wt 83.9 kg
[~2021-01-20 07:06] MED LIST changes: +LR 1,000 ML IV ONE; +LevoFLOXacin IV 500 MG in IV 1 EA IV ONE
--- OUTSIDE RECORDS SUMMARY | 2021-01-20 07:10 | CCD | Continuity of Care Document ---
Author Author Sonia MIMS MD Organization Unknown Address [address] [address] Phone [phone] Care Team Providers Care Orthopaedic Nurse Name Role Phone Evonne Delatorre M.D. AUTM Unavailable Adalid Kenny M.D. AUTM [phone] Susanna, Andrea U. M.D. AUTM Unavailable Problems Description No Information Available Social History Type Date Description Comments Sex Unknown ETOH Use Sociable Recreational Drug Use Denies Drug Use Tobacco Use Start: 11/28/88 End: 11/28/18 Patient is a current smoker, smokes every day 1/2 PPD FOR 28 YEARS she quit 3 weeks ag o. (03/02/19) Smoking Status Reviewed: 03/15/19 Patient is a current smoker, smokes every day 1/2 PPD FOR 28 YEARS she quit 3 weeks ago. (03/02/19) Recent Travel [place] Allergies, Adverse Reactions, Alerts Active Allergies Reaction Severity Comments Date Penicillin Hives 02/07/2019 Sulfa Hives 02/07/2019 Ibuprofen SWELLING OF FACE, THROAT Aspirin SWELLING FACE & THROAT 02/07 Medications Active Medications SIG Qnty Indications Ordering Provide r Date Albuterol Sulfate HFA 108(90Base) mcg/Act Aerosol inhale two puffs by mouth four times a day as needed Unknown Advair Diskus 250-50mcg/Dose Aerosol Susanna, Andrea, U. M.D. Immunizations Description No Information Available Vital Signs Date Vital Result Comment 01/07/2021 10:52am BP Systolic 105 mmHg BP Diastolic 70 mmHg Height 68 inches 5'8" Weight 189.12 lb BMI (Body Mass Index) 28.8 kg/m2 [place] Body Weight 140 lb Weight 85.787 kg BSA (Body Surface Area) 2.00 m2 03/15/2019 10:45am BP Systolic 110 mmHg BP Diastolic 70 mmHg Heart Rate 87 /min O2 % BldC Oximetry 98 % Room Air Body Temperature 98.3 F Height 68 inches 5'8" Weight 172.00 lb BMI (Body Mass Index) 26.1 kg/m2 [place] Body Weight 140 lb Weight 78.019 kg BSA (Body Surface Area) 1.92 m2 Results Description No Information Available Procedures Date Code Description Status 09/19/2020 60335 Insertion Of Indwelling Tunneled Pleural Catheter W/Cuff Completed Medical Devices Description No Information Available Encounters Type Date Location Provider Dx Diagnosis Office Visit 09/19/2020 1:23a [facility] Pulmonary/Thoracic R mando Castañeda M.D. J90 Pleural effusion, not elsewh ere classified C50.919 Malignant neoplasm of unsp s ite of unspecified female breast J45.909 Unspecified asthma, uncompli cated Assessments Date Code Description Provider 09/19/2020 J90 Pleural effusion, not elsewhere classified Shant Castañeda M.D. 09/19/2020 C50.919 Malignant neoplasm o f unspecified site of unspecified female breast Shant Castañeda M.D. 09/19/2020 J45.909 Unspecified asthma, uncomplicate d Shant Castañeda M.D. Plan of Treatment 03/15/2019 - Shant Castañeda M.D.* Z48.812 Encntr for surgical aftcr following surgery on the circ sys * C50.912 Malignant neoplasm of unspecified site of left female breast* Follow up:* d/c from care * I97.638 Postprocedural hematoma of a circulatory system organ or str Functional Status Description No Information Available Mental Status Description No Information Available Referrals Refer to Reason for Referral Status Appt Date Justice Mims M.D. NECK, LYMPH NECK BIOPSY Scheduled 08/2021 [facility] General Surgery [address] [place] [phone]
--- OUTSIDE RECORDS SUMMARY | 2021-01-20 07:10 | CCD ---
Author Author [facility] Organization [facility] Address Unknown Phone Unavailable Care Team Providers Care Pulmonary Fellow Name Role Phone Parminder Castañeda MD Unavailable Unavailable GarryParminder MD Unavailable Unavailable GarryParminder MD Unavailable Unavailable Parminder Castañeda MD Unavailable Unavailable Parminder Castañeda MD Unavailable Unavailable Parminder Castañeda MD Unavailable Unavailable Parminder Castañeda MD Unavailable Unavailable GarryParminder MD Unavailable Unavailable GarryParminder MD Unavailable Unavailable GarryParminder MD Unavailable Unavailable Parminder Castañeda MD Unavailable Unavailable Parminder Castañeda MD Unavailable Unavailable Parminder Castañeda MD Unavailable Unavailable Parminder Castañeda MD Unavailable Unavailable Parminder Castañeda MD Unavailable Unavailable Parminder Castañeda MD Unavailable Unavailable Parminder Castañeda MD Unavailable Unavailable Parminder Castañeda MD Unavailable Unavailable Parminder Castañeda MD Unavailable Unavailable Parminder Castañeda MD Unavailable Unavailable Parminder Castañeda MD Unavailable Unavailable Parminder Castañeda MD Unavailable Unavailable Parminder Castañeda MD Unavailable Unavailable Parminder Castañeda MD Unavailable Unavailable Parminder Castañeda MD Unavailable Unavailable Parminder Castañeda MD Unavailable Unavailable Parminder Castañeda MD Unavailable Unavailable Parminder Castañeda MD Unavailable Unavailable Parminder Castañeda MD Unavailable Unavailable Parminder Castañeda MD Unavailable Unavailable Parminder Castañeda MD Unavailable Unavailable Parminder Castañeda MD Unavailable Unavailable Parminder Castañeda MD Unavailable Unavailable Parminder Castañeda MD Unavailable Unavailable Parminder Castañeda MD Unavailable Unavailable Parminder Castañeda MD Unavailable Unavailable Parminder Castañeda MD Unavailable Unavailable Parminder Castañeda MD Unavailable Unavailable Re-disclosure Warning The records that you are about to access may contain information from federally-assisted alcohol or drug abuse programs. If such information is present, then the following federally mandated warning applies: This information has been disclosed to you from records protected by federal confidentiality rules (42 CFR part 2). The federal rules prohibit you from making any further disclosure of this information unless further disclosure is expressly permitted by the written consent of the person to whom it pertains or as otherwise permitted by 42 CFR part 2. A general authorization for the release of medical or other information is NOT sufficient for this purpose. The Federal rules restrict any use of the information to criminally investigate or prosecute any alcohol or drug abuse patient.The records that you are about to access may contain highly sensitive health information, the redisclosure of which is protected by Article 27-F of the [facility] Public Health law. If you continue you may have access to information: Regarding HIV / AIDS; Provided by facilities licensed or operated by the [facility] Office of Mental Health; or Provided by the [facility] Office for People With Developmental Disabilities. If such information is present, then the following [facility] mandated warning applies: This information has been disclosed to you from confidential records which are protected by state law. State law prohibits you from making any further disclosure of this information without the specific written consent of the person to whom it pertains, or as otherwise permitted by law. Any unauthorized further disclosure in violation of state law may result in a fine or intermediate sentence or both. A general authorization for the release of medical or other information is NOT sufficient authorization for further disc losure. Encounters Encounter Providers Location Date Indications Data Source(s ) Outpatient Attender: Shant Adames/Yobani/David/Nasrin indl 09/19/2020 01:23:00 AM EDT [facility] 01/08/2020 03:14:00 PM EST [facility] Outpatient 12/21/2019 01:24:00 PM EST [facility] Insurance Providers Payer name Policy type / Coverage type Policy ID Covered alliance party ID Covered alliance party's relationship to jo Policy Jo Plan Information [employer] [employer] [id number] [facility] [id number] [employer] [facility] O [id number] S [id number] [facility] [id number] Marj [id number] Self [id number] [facility] [id number] [facility] [id number] Surgeries/Procedures Procedure Description Date Indications Data Source(s) INSERTION INDWELLING TUNNELED PLEURAL CATHETER 12:00:00 AM EDT [facility] ([facility]) Results ID Date Data Source [id number] 01/15/2021 11:43:00 AM EST [facility] Name Value Range Interpretation Code Description Data Sherry rce(s) Supporting Document(s) SARS coronavirus 2 RNA Not Detected [facility] [place] This lab was ordered by [facility] and reported by [facility]. ID Date Data Source [id number] 01/01/2021 08:25:00 AM EST [facility] Name Value Range Interpretation Code Description Data Sherry rce(s) Supporting Document(s) SARS coronavirus 2 RNA Detected [facility] This lab was ordered by [facility] and reported by [facility]. ID Date Data Source [id number] 12/17/2020 07:58:00 AM EST [facility] Name Value Range Interpretation Code Description Data Sherry rce(s) Supporting Document(s) SARS coronavirus 2 RNA Not Detected [facility] [place] This lab was ordered by [facility] and reported by [facility]. Procedure Vital Signs ID Date Data Source UNK Name Value Range Interpretation Code Description Data Source(s) Body surface area Derived from formula 2.00 m2 2.00 m2 [facility] ([facility]) Body weight 85.787 kg 85.787 kg [facility] ([facility]) [place] body weight 140 [lb_av] 140 [lb_av] [facility] Body mass index (BMI) [Ratio] 28.8 kg/m2 28.8 k g/m2 [facility] ([facility]) Body weight 189.12 [lb_av] 189.12 [lb_av] [facility] Body height 68 [in_i] 68 [in_i] [facility] ([facility]) 5'8" Diastolic blood pressure 70 mm[Hg] 70 mm[Hg] [facility]AL[facility] ([facility]) Systolic blood pressure 105 mm[Hg] 105 mm[Hg] Kei KINCAID ([facility] )
[2021-01-20] MEDS ORDERED: BUPIVACAINE/EPIN 0.25% 30 ML VIAL As Ordered ONE (08:04)
[2021-01-20] MEDS ORDERED: propofoL 200 MG/20 ML VIAL As Ordered ONE ×2 (08:39→09:27)
[2021-01-20] MEDS ORDERED: LIDOCAINE 2% 100MG/5ML SDV (FOR ANES.) As Ordered ONE (08:39)
[2021-01-20] MEDS ORDERED: ONDANSETRON 4MG/2ML VIAL As Ordered ONE (08:39)
[2021-01-20] MEDS ORDERED: MIDAZOLAM INJ 2MG/2ML VIAL (J2250 PER 1MG) As Ordered ONE (08:39)
[2021-01-20] MEDS ORDERED: dexameTHASONE 4 MG/ML 1ML VIAL (J1100 PER 1MG) As Ordered ONE (08:39)
[2021-01-20] MEDS ORDERED: METOCLOPRAMIDE INJ 10MG/2ML VIAL (J2765 PER 1) As Ordered ONE (08:39)
[2021-01-20] MEDS ORDERED: fentaNYL 100 MCG/2 ML INJECTION (J3010) As Ordered ONE (08:40)
[2021-01-20] MEDS ORDERED: ACETAMINOPHEN 1000MG 100ML IV BTL (OFIRMEV) (J0131 PER 10MG) As Ordered ONE (08:40)
[2021-01-20] MEDS ORDERED: SEVOFLURANE INHAL SOLN 250 ML BTL As Ordered ONE (09:26)
--- NOTE | 2021-01-20 10:28 | RO ---
OPERATIVE NOTE DATE OF OPERATION: 01/20/2021 PREOPERATIVE DIAGNOSIS: Metastatic breast cancer to left neck lymph node. POSTOPERATIVE DIAGNOSIS: Metastatic breast cancer to left neck lymph node. PROCEDURE: Excision of left neck lymph node/biopsy. SURGEON: Justice Mims MD CONFLICT RESOLUTION PROFESSIONAL: ANESTHESIA: IV sedation plus local. EBL: Minimal. DESCRIPTION OF PROCEDURE: The patient was brought to the operating room and was prepped and draped in usual sterile fashion. She was placed in reverse Trendelenburg position and the firm mass along the sternocleidomastoid on the left-hand side was seen as a hot spot on PET scan and started out as a small lymph node that the patient was appreciating growing over the last few months. A transverse incision was made over the top of this and combination of blunt and sharp dissection was used to dissect down to the lymph node area. What was obvious at this point was that this was mostly desmoplastic reaction and probably tumor infiltrating into the sternocleidomastoid more so than an enlarged lymph node itself. The area of firmness was about 3 cm in size but the lymph node that I was able to visualize was probably a centimeter and was quite necrotic. In any case, removal of this lymph node was piecemeal given the amount of desmoplastic reaction and I was able to remove some additional desmoplastic reaction/sternocleidomastoid on this side. This was sent to pathology fresh and pathology did confirm high grade adenocarcinoma. Definite screens, etc will be done later. In any case, the subcutaneous tissue was brought together with 3-0 Vicryl, 4-0 Vicryl was used to approximate the skin. Steri-Strips and dry, sterile dressing were applied. The patient was awoken from sedation and brought to recovery room awake, alert and hemodynamically stable. Sponge and needle counts correct x2.
[2021-01-20 10:30] VITALS: BP 97/54
[2021-01-20] MEDS ORDERED: ONDANSETRON 4MG/2ML VIAL IV PRN (10:30)
[2021-01-20] MEDS ORDERED: METOCLOPRAMIDE INJ 10MG/2ML VIAL (J2765 PER 1) IV PRN (10:30)
[2021-01-20] MEDS ORDERED: PERCOCET 5MG/325MG TAB PO PRN (10:30)
[2021-01-20] MEDS ORDERED: LR 1,000 ML IV SCH (10:30)
== END 2021-01-20 10:36 | disposition home or self-care (01) ==
LOC: M SDC 07:06
PROVIDERS: ATTEND Surgery
DX: C77.0 Secondary and unspecified malignant neoplasm of lymph nodes of head, face and neck (principal); C50.912 Malignant neoplasm of unspecified site of left female breast; J45.909 Unspecified asthma, uncomplicated; K21.9 Gastro-esophageal reflux disease without esophagitis; Z88.0 Allergy status to penicillin; Z88.2 Allergy status to sulfonamides; Z88.6 Allergy status to analgesic agent; Z92.21 Personal history of antineoplastic chemotherapy; Z92.3 Personal history of irradiation
CPT/HCPCS: 38500; 88305; J0131; J1100; J2250; J2405; J2765; J3010

== ENCOUNTER → 2021-04-17 | Outpatient (CLI) | payer OTHER ==
[~2021-04-17] MED LIST changes: +COVI30VI IM; -LR 1,000 ML IV ONE; -LevoFLOXacin IV 500 MG in IV 1 EA IV ONE; +OMEP-218 PO; +ONDA8TAB8 PO
--- NOTE | 2021-04-24 09:35 | ECHO ---
ECHOCARDIOGRAM DATE OF PROCEDURE: 04/17/2021 Age: 45 Gender: Female Height: Weight: REFERRING PHYSICIAN: Linda Sumner M.D. PATIENT LOCATION: Outpatient. REASON FOR STUDY: Chemotherapy drug monitoring. 2D MEASUREMENTS: IVS 0.8 cm LV 5.7 cm LVPW 1.0 cm LA 3.9 cm Aorta 3.1 cm IVC 1.5 cm 2D COMMENTS: 1. Normal left ventricular wall thickness with mildly enlarged left ventricle. Left ventricular systolic function is normal, estimated at 60% to 65%. 2. Normal left atrium. Subjectively, the right atrium and the right ventricle appear to be mildly enlarged in limited views. 3. The atrial septum appeared to be normal without evidence of defect or shunt. 4. Normal aortic root. 5. A small pericardial effusion was noted, no evidence of cardiac tamponade. 6. Normal aortic valve, mitral valve, and tricuspid valve. The pulmonic valve was not well visualized. The proximal pulmonary artery branches also were not well visualized. DOPPLER: No significant abnormalities detected, but trace mitral regurgitation and trace tricuspid regurgitation. Pulmonary artery systolic pressure is most likely normal. IMPRESSION: 1. Normal global left ventricular systolic function with a mildly enlarged left ventricle. 2. Trace mitral regurgitation. 3. Trace tricuspid regurgitation, pulmonary artery systolic pressure appeared to be normal. 4. A small pericardial effusion was noted. No evidence of cardiac tamponade.
== END ==
LOC: M CARPUL 07:38
PROVIDERS: ATTEND Internal Medicine Medical Oncology
DX: I34.0 Nonrheumatic mitral (valve) insufficiency (principal); I36.1 Nonrheumatic tricuspid (valve) insufficiency; I31.3 Pericardial effusion (noninflammatory); C50.919 Malignant neoplasm of unspecified site of unspecified female breast

== ENCOUNTER → 2021-04-20 | Outpatient (CLI) | payer OTHER ==
--- NOTE | 2021-04-21 11:18 | REP ---
INDICATION: RESTAGING LEFT BREAST CANCER. 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 Status post left mastectomy lymph node dissection re-excision. Chemotherapy treatment. Pleural metastatic disease August of 2020. COMPARISON: Comparison PET-CT studies are dated January 05, 2021 and March 13, 2019.. TECHNIQUE: Sixty-one minutes following the intravenous injection of a 9.40 mCi dose of F-18 FDG, three-dimensional PET scintigraphy is acquired from the skull base to the proximal thighs. Triplanar noncontrast CT scanning is acquired through the same anatomic range for attenuation correction, and image registration with scan parameters optimized to minimize radiation exposure to the patient. PET scintigraphy and CT datasets were fused and displayed on a workstation with multiplanar and projection display capability. FINDINGS: Today's examination shows essentially diffuse increased metabolic uptake throughout the axial skeletal bone marrow. This is most compatible with rebound bone marrow activity post chemotherapy. Improvement is noted compared to the prior study. There is residual silvino hypermetabolic uptake in a right paratracheal lymph node with maximum standard uptake value 4.73. AP window region and left suprahilar silvino uptake is seen. Maximum standard uptake value in the left suprahilar region is 4.34 and in the AP window region of the mediastinum, 3.63. There is hypermetabolic silvino uptake in the right hilus 4.09, and in the subcarinal region 4.27. These areas are improved. The right supraclavicular adenopathy has regressed considerably. Maximum standard uptake value in a small subcentimeter right supraclavicular node is 3.39. There is left supraclavicular lymphadenopathy which is improved but a persists, SUV 5.01. There is another focus in the left supraclavicular region where SUV is 2.95 in a subcentimeter focus. There is improved but residual hypermetabolic pleural uptake in the left chest, maximum standard uptake value in the the nodular thickening in the left anterior pleural space is 4.53. There are pulmonary parenchymal nodules in the left lung, maximum standard uptake value in the largest of these is 5.08, left lower lobe nodule. In the abdomen and pelvis, normal hepatic, splenic, gastrointestinal, and genitourinary FDG accumulation is seen. No other abnormal hypermetabolic uptake. IMPRESSION: Improvement is noted since the most recent prior study as above January 05, 2021. There is still hypermetabolic silvino disease in the supraclavicular regions, mediastinum and bilateral hilar regions, left lung and left pleural space. Diffuse skeletal marrow hyperactivity most compatible with rebound post chemotherapy effect. Consider further evaluation with radionuclide bone scan. <Electronically signed by Helder Hill > 04/21/21 [id number]
== END ==
LOC: M PLARAD 14:12
PROVIDERS: ATTEND Internal Medicine Medical Oncology
DX: C50.912 Malignant neoplasm of unspecified site of left female breast (principal)
CPT/HCPCS: 78815; A9552

== ENCOUNTER → 2021-07-23 | Outpatient (CLI) | payer OTHER ==
[~2021-07-23] MED LIST changes: +GASTROGRAFIN SOLUTION 30ML (Q9963) As Ordered ONE; +ISOVUE-370 76% 100ML VIAL As Ordered ONE
--- NOTE | 2021-07-24 07:50 | REP ---
INDICATION: MET BREAST CA. COMPARISON: 05/15/2020 TECHNIQUE: Axial contrast-enhanced images from the lung bases to the pubic symphysis using oral and 100 cc Isovue 370 intravenous contrast material. Coronal and sagittal reformations obtained. This CT examination was performed using the following dose reduction techniques: Automated exposure control, adjustment of mA and/or kv according to the patient's size, and the use of iterative reconstruction technique. FINDINGS: Liver demonstrates small 9 mm presumed cyst in the left lateral segment. Spleen, pancreas, gallbladder, bilateral adrenal glands and kidneys are normal. The enteric system including stomach, small, and large bowel appears normal. No evidence for obstruction or acute inflammatory process. Normal terminal ileum and appendix are identified in the right lower quadrant. Pelvis demonstrates normal bladder and age-appropriate uterus/adnexa. No ascites. No free air. No intraperitoneal or retroperitoneal adenopathy. Abdominal aorta and vasculature appear normal. Musculoskeletal structures are essentially normal and without obvious acute osseous pathology. IMPRESSION: 1. No acute abdominopelvic pathology appreciated. Specifically, no evidence for metastatic disease noted. 2. 9 mm hypodensity in the liver left lateral segment which may represent cyst. Consider abdominal ultrasound for confirmation. <Electronically signed by Fabian Mayers > 07/24/21 [id number]
--- NOTE | 2021-07-24 08:12 | REP ---
INDICATION: MET BREAST CA COMPARISON: 11/19/2020, 09/21/2020 TECHNIQUE: Axial contrast enhanced images from the thoracic inlet to the upper abdomen with coronal and sagittal reformations using 100 ml Isovue 370 intravenous contrast material. Examination is followed by CT of the abdomen and pelvis. This CT examination was performed using the following dose reduction techniques: Automated exposure control, adjustment of mA and/or kv according to the patient's size, and use of iterative reconstruction technique. FINDINGS: Residual bilateral pleuroparenchymal changes are noted but considerably improved. Nodules which were previously obscured by elements of airspace disease and fluid are noted including anterior left upper lobe nodule measuring 8 mm, and left lower lobe nodule measuring 14 mm. Scattered new primarily left-sided nodules are now identified including subpleural nodules up to 5 mm and few left upper lobe and lower lobe nodules measuring up to 6 mm. There appears to be some irregular pleural thickening along the lateral margin of the left hemithorax which may represent residual changes from prior effusion and parenchymal process although small new subpleural metastatic lesions cannot be excluded. New small 3 mm subpleural nodule in the posterolateral right mid lung zone (image 61) is also identified along with 3 mm posterior right upper lobe nodule (image 38). Very small residual left pleural effusion noted. Small amount of pericardial fluid is unchanged. The tracheobronchial tree is patent. Mediastinal/prevascular, subcarinal and hilar lymph nodes (right greater than left) measure up to roughly 14 mm. [id number] identified with tip in the SVC. Left mastectomy and right mammoplasty noted. The osseous structures are relatively intact and stable. No obvious sclerotic metastatic focus is identified. IMPRESSION: 1. Previously noted pleuroparenchymal processes have near completely resolved and small obscured nodules primarily in the left hemithorax are now visible along with few new nodules. Small right nodules are identified as well and these findings are most consistent with metastatic disease. Associated mild to moderate mediastinal and hilar adenopathy is also noted. <Electronically signed by Fabian Mayers > 07/24/21 [id number]
== END ==
LOC: M RAD 16:21
PROVIDERS: ATTEND Internal Medicine Medical Oncology
DX: C50.919 Malignant neoplasm of unspecified site of unspecified female breast (principal)
CPT/HCPCS: 71260; 74177; Q9963; Q9967

== ENCOUNTER → 2021-08-17 | Outpatient (CLI) | payer OTHER ==
[~2021-08-17] MED LIST changes: -GASTROGRAFIN SOLUTION 30ML (Q9963) As Ordered ONE; -ISOVUE-370 76% 100ML VIAL As Ordered ONE
--- NOTE | 2021-08-17 12:19 | REP ---
INDICATION: BREAST CA W/ SEVER BONE PAIN. COMPARISON: 08/12/2020. TECHNIQUE/RADIOTRACER AND DOSE: Following the intravenous administration of 22.0mCi technetium 99 M MDP, patient's whole-body is imaged in multiple projections. FINDINGS: There is homogeneous distribution of radiotracer throughout the axial and appendicular skeleton with no focal increased uptake. Renal and bladder activity are seen. IMPRESSION: Negative whole body bone scan with no change since prior study. <Electronically signed by Virgilio Conklin > 08/17/21 [id number]
== END ==
LOC: M RAD 07:12
PROVIDERS: ATTEND Internal Medicine Hematology & Oncology
DX: C50.919 Malignant neoplasm of unspecified site of unspecified female breast (principal); M89.8X9 Other specified disorders of bone, unspecified site
CPT/HCPCS: 78306; A9503

== ENCOUNTER → 2021-09-09 | Outpatient (CLI) | payer OTHER ==
[~2021-09-09] MED LIST changes: +GASTROGRAFIN SOLUTION 30ML (Q9963) As Ordered ONE; +ISOVUE-370 76% 100ML VIAL As Ordered ONE
--- NOTE | 2021-09-10 08:33 | REP ---
INDICATION: BREAST CA-CONTRAST THROUGH PORTS COMPARISON: Multiple the latest 07/23/2021 also after intravenous contrast TECHNIQUE: Standard helical technique after the intravenous administration of 100 cc Isovue 370. FINDINGS: There is mediastinal and hilar adenopathy status quo. There is a slight pericardial effusion status quo. There is no pleural effusion. The imaged upper abdomen and imaged osseous structures are stable. Evaluation of the lung vila shows the dominant pulmonary nodule in the left lower lobe has increased in size, previously measuring 14.67 mm and today measuring 16.95 mm. Additionally, it appears more spiculated. The pleural based asymmetric density seen previously in the татьяна basal segment of the left lower lobe has also increased in size. The nodule seen previously in the medial basal segment of the left lower lobe has increased in size. Previously this measured 8.45 mm and today it measures 11.55 mm. The pleural based asymmetric density seen previously in left upper lobe is also increased slightly in size. There are numerous additional sub cm sized pulmonary nodules which appear stable. IMPRESSION: 1. Stable appearing adenopathy. 2. Stable appearing pericardial effusion. 3. Multiple pulmonary nodules as described above consistent with metastatic disease. <Electronically signed by Calos Rivera > 09/10/21 [id number]
--- NOTE | 2021-09-10 08:41 | REP ---
INDICATION: BREAST CA-CONTRAST THOUGH PORTS. COMPARISON: Multiple the latest 07/23/2021 TECHNIQUE: Standard helical technique after the intravenous administration of 100 cc Isovue 370 and oral bowel preparatory contrast administration. FINDINGS: The liver is unchanged. There are 2 tiny focal hypodensities in the lateral segment of the left lobe status quo. The spleen, pancreas, adrenal glands, and kidneys are again seen to be within normal limits. The abdominal aorta and para-aortic regions are unchanged and again seen to be within normal limits. The bowel loops and the mesenteries are unchanged. There is no mass or adenopathy. There is no free fluid or free air. Bone window technique throughout the exam shows no significant change in appearance of the osseous structures. IMPRESSION: There is been no significant change compared to the prior exam. There is no evidence of acute disease. <Electronically signed by Calos Rivera > 09/10/21 [id number]
== END ==
LOC: M RAD 15:43
PROVIDERS: ATTEND Internal Medicine Medical Oncology
DX: R91.8 Other nonspecific abnormal finding of lung field (principal); C50.919 Malignant neoplasm of unspecified site of unspecified female breast
CPT/HCPCS: 71260; 74177; J1642; Q9963; Q9967

== ENCOUNTER → 2021-09-11 | Outpatient (CLI) | payer OTHER ==
[~2021-09-11] MED LIST changes: -GASTROGRAFIN SOLUTION 30ML (Q9963) As Ordered ONE; -ISOVUE-370 76% 100ML VIAL As Ordered ONE
--- NOTE | 2021-09-12 11:49 | ECHO ---
ECHOCARDIOGRAM DATE OF PROCEDURE: 09/11/2021 Age: 46 Gender: Female Height: Weight: REFERRING PROVIDER: Linda Sumner M.D. PATIENT LOCATION: Outpatient REASON FOR THE TESTING: Chemotherapy drug monitoring. MEASUREMENTS: 2D Measurements: IVS 0.8 cm LVPW 0.7 cm LV 4.9 cm Aortic root 3.0 cm LA 2.8 cm Doppler Measurements: Peak velocity across the aortic valve 1.1 m/sec Peak velocity across the LVOT 0.92 m/sec Mitral E 0.6 Mitral A 0.7 with a ratio of 0.89 2D COMMENTS: 1. Normal left ventricular size, wall thickness and normal global left ventricular systolic function. The estimated left ventricular systolic ejection fraction is 60-65%. 2. Normal left atrium. Normal right atrium and right ventricle. 3. The atrial septum appeared to be normal without evidence of defect or shunt. 4. Normal aortic root. 5. No pericardial effusion. 6. Minimally calcified aortic valve with normal leaflet excursion. Mildly calcified mitral annulus with normal anterior mitral valve leaflet motion. Normal tricuspid valve and pulmonic valve. The proximal pulmonary artery branches were not well visualized. 7. Subsequently, the inferior vena cava appeared to be normal in size. DOPPLER: Only trace mitral regurgitation detected. Assessment of the left ventricular diastolic function appeared to be normal. IMPRESSION: 1. Normal global left ventricular systolic and diastolic function. 2. Mitral annulus calcification with trace mitral regurgitation. 3. Aortic valve sclerosis without stenosis or aortic regurgitation.
== END ==
LOC: M CARPUL 11:56
PROVIDERS: ATTEND Internal Medicine Medical Oncology
DX: I35.0 Nonrheumatic aortic (valve) stenosis (principal); C50.919 Malignant neoplasm of unspecified site of unspecified female breast

== ENCOUNTER → 2021-10-07 | Outpatient (CLI) | payer OTHER ==
[~2021-10-07] MED LIST changes: +ISOVUE-370 76% 100ML VIAL As Ordered ONE; +PRED50TA PO
--- NOTE | 2021-10-07 09:10 | REPVR ---
PROCEDURE INFORMATION: Exam: CT Neck With Contrast Exam date and time: 10/07/2021 8:41 AM Age: 46 years old Clinical indication: Condition or disease; Cancer; Other: Breast; Additional info: Breast CA w/ neck pain ? mets TECHNIQUE: Imaging protocol: Computed tomography images of the neck with contrast. Radiation optimization: All CT scans at this facility use at least one of these dose optimization techniques: automated exposure control; mA and/or kV adjustment per patient size (includes targeted exams where dose is matched to clinical indication); or iterative reconstruction. Contrast material: ISOVUE 370; Contrast volume: 100 ml; Contrast route: INTRAVENOUS (IV); COMPARISON: PT PET/CT Skull/mid thigh 04/20/2021 4:29 PM FINDINGS: Nasopharynx: Unremarkable. Oropharynx: Unremarkable. No significant tonsillar enlargement. Hypopharynx: Unremarkable. Larynx: Unremarkable. Normal epiglottis. Retropharyngeal space: Unremarkable. Submandibular/Parotid glands: Normal. Glands are normal in size. Thyroid: Normal. No enlarged or calcified nodules. Lymph nodes: There are prominent lower IJ lymph nodes bilaterally. These measure up to 16 x 10 mm on the left. Trachea: Visualized trachea is unremarkable. Lungs: There are hazy right apical ground-glass opacities. There are left apical pulmonary nodules measuring up to 3.5 mm in diameter, potentially pulmonary metastases. Please refer to CT chest examination is performed previously. Bones/joints: There is degenerative disc disease and spondylosis, most pronounced at C5/6 and C6/7. There is facet hypertrophy. No acute fracture. Soft tissues: Unremarkable. No significant soft tissue swelling. IMPRESSION: 1. Prominent lower IJ lymph nodes bilaterally, measuring up to 16 x 10 mm on the left. 2. Degenerative disc disease and spondylosis at C5/6 and C6/7. Electronically signed by: Lisa May On 10/07/2021 09:10:20 AM
--- NOTE | 2021-10-07 09:28 | REP ---
INDICATION: BREAST CA W/ NECK PAIN ? METS. COMPARISON: 09/09/2021, 11/19/2020 TECHNIQUE: Bolus 100 mL Isovue 370 scanning through the chest with coronal and sagittal reconstructions. FINDINGS: Left lateral pleural effusion again noted measuring 17 mm in maximum thickness, previously 14 mm. Anterolateral pleural thickening at the left base and chest wall again seen there is more subsegmental atelectatic change adjacent to the pleural thickening in the anterior left lung base than on the previous study. 16 mm nodule posterior segment left lower lobe multiple other cm and sub cm nodules scattered in the left lower lobe and lingula all without significant change. There is also a 10 mm nodule, pleural based and adjacent to the left heart border anteriorly in the left lower lobe on image 71, unchanged. There are scattered nodules in the right lung and in the left upper lobe, stable. No pneumothorax. No definite effusion. Chronic changes and ground-glass opacity scattered in the lung vila. Heart size is not changed and there is no gross cardiomegaly. The aorta is without aneurysm or dissection. The main, right and left pulmonary arteries are without thrombus. Left hilar adenopathy up to 14 mm is seen 9 mm subcarinal node prevascular space nodes up to 11.7 mm, AP window node up to 9.8 mm and some 10 mm right paratracheal nodes seen. These are unchanged. Patient is status post a left mastectomy and has indwelling port catheter via the right jugular route and breast reconstruction with implant on the the right. The bone windows show the sternum, manubrium, clavicles, scapulae, ribs and humeral heads intact. Sagittal reconstruction show cervical spondylosis at C6-7 with anterior posterior osteophytes. There is a lytic lesion in the spine at T9 centrally and towards the left abutting the superior endplate but not eroding it. It measures 12 x 14 mm. I do not see other bony destructive lesions. No compression deformities. Upper abdomen shows that portion of liver and spleen included without acute finding. Gallbladder, pancreas and upper poles of kidneys are seen in part and unremarkable. Adrenal glands are normal. There is no hiatal hernia. IMPRESSION: 1. Pattern of the pleural thickening in the left chest, metastatic lung nodules bilaterally and mediastinal adenopathy with left lateral pericardial effusion seen and unchanged. She is status post left mastectomy and has right breast implant. 2. There is a 14 x 12 mm lytic lesion in the T9 vertebral body with no other acute bone lesions, compression fracture or spinal/foraminal stenosis in the chest.. There was cervical spondylosis at C6-7 which is causing mild central canal and foraminal stenosis. No other new findings. <Electronically signed by Jorge Feldman > 10/07/21 0928
== END ==
LOC: M RAD 08:06
PROVIDERS: ATTEND Internal Medicine Medical Oncology
DX: C50.919 Malignant neoplasm of unspecified site of unspecified female breast (principal); C78.00 Secondary malignant neoplasm of unspecified lung; M47.812 Spondylosis without myelopathy or radiculopathy, cervical region; M25.78 Osteophyte, vertebrae; I31.3 Pericardial effusion (noninflammatory); Z90.12 Acquired absence of left breast and nipple; G95.9 Disease of spinal cord, unspecified; M50.322 Other cervical disc degeneration at C5-C6 level; M50.323 Other cervical disc degeneration at C6-C7 level
CPT/HCPCS: 70491; 71260; Q9967

== ENCOUNTER 2021-10-20 09:03 | Inpatient (IN) | payer OTHER ==
[~2021-10-20] VITALS: Ht 170.2 cm; Wt 79.5 kg
[~2021-10-20 09:03] MED LIST changes: +AERO1MIS2 XX; -ISOVUE-370 76% 100ML VIAL As Ordered ONE; +LEVA1.25 INH; +OMEP-173 PO; -OMEP-218 PO; +ONDA-84 PO; -ONDA8TAB10 PO; -PROC10TA4 PO; +PROC10TA5 PO
[2021-10-20] MEDS ORDERED: methylPREDNISolone 125MG 2ML VIAL IV ONE (09:15)
[2021-10-20] MEDS: COMBIVENT RESPIMAT 100-20MCG INHALER 4GM INH SCH ×3 (09:20→10:21)
[2021-10-20 09:33] LABS: ABG BASE EXCESS -0.3 (-2.0-2.0); ABG O2 SATURATION 93.8 % (95.0-99.0); ABG PARTIAL PRESSURE CO2 38.4 mmHg (35.0-45.0); ABG PARTIAL PRESSURE O2 70.8 mmHg (75.0-100.0); ABG STANDARD HCO3 24.1 MEQ/L (22.0-26.0); ABG TOTAL CO2 25.2 MEQ/L (22.0-29.0); ABG pH (ARTERIAL) 7.414 UNITS (7.350-7.450)
[2021-10-20 10:00] LABS: BASO # 0.1 10^3/uL (0.0-0.2); BASO % 0.7 % (0.0-1.0); EOS # 0.1 10^3/uL (0.0-0.5); EOS % 0.5 % (0.0-3.0); HEMATOCRIT 41.9 % (36.0-47.0); HEMOGLOBIN 13.2 g/dl (12.0-15.5); LYMPH # 0.6 10^3/uL (1.5-5.0); LYMPH % 6.3 % (24.0-44.0); MEAN CORPUSCULAR HGB CONC 31.5 g/dl (32.0-36.5); MONO # 0.6 10^3/uL (0.0-0.8); MONO % 5.8 % (2.0-8.0); NEUTROPHILS # 8.2 10^3/uL (1.5-8.5); NEUTROPHILS % 86.2 % (36.0-66.0); PLATELET COUNT, AUTOMATED 293 10^3/uL (150-450); RED BLOOD COUNT 4.71 10^6/uL (4.00-5.40); WHITE BLOOD COUNT 9.5 10^3/uL (4.0-10.0)
[2021-10-20] MEDS ORDERED: cefTRIAXone SOD 1 GM in D5W MINI-BAG PLUS 50 ML IV ONE (10:25)
[2021-10-20] MEDS ORDERED: AZITHROMYCIN INJ 500 MG, VIAL MATE ADAPTER 1 EACH in NS 250 ML IV ONE (10:25)
[2021-10-20 10:32] LABS: ALBUMIN 3.6 GM/DL (3.2-5.2); ALT/SGPT 22 U/L (12-78); BILIRUBIN,DIRECT < 0.1 MG/DL (0.0-0.2); BILIRUBIN,TOTAL 0.4 MG/DL (0.2-1.0); NT-PRO BNP 26 PG/ML (<125); THYROXINE (T4) 13.4 UG/DL (4.5-12.0); TOTAL PROTEIN 6.9 GM/DL (6.4-8.2)
[2021-10-20] MEDS ORDERED: HOME MED LIST COMPLETE! XX SCH (10:35)
[2021-10-20] MEDS ORDERED: ISOVUE-370 76% 100ML VIAL As Ordered ONE (10:38)
[2021-10-20] MEDS ORDERED: NS 1,000 ML IV SCH (12:30)
[2021-10-20 16:38] VITALS: BP 118/77
[2021-10-20 18:49] LABS: CK-MB VALUE MASS < 1.0 NG/ML (<3.6); CPK CREATINE PHOSPHOKINASE 146 U/L (26-192)
[2021-10-20] MEDS: ADVAIR HFA 115/21MCG INHALER INH SCH (19:53)
[2021-10-20] MEDS: PERCOCET 5MG/325MG TAB PO SCH (21:21)
[2021-10-20 22:00] VITALS: BP 111/72
[2021-10-21] MEDS: ACETAMINOPHEN TAB 650MG DOSE (2X325MG) PO PRN ×2 (00:08→21:09)
[2021-10-21 01:49] LABS: MB/CK RELATIVE INDEX 0.58 (< OR =4)
[2021-10-21 05:47] VITALS: BP 122/73
[2021-10-21] MEDS: ADVAIR HFA 115/21MCG INHALER INH SCH ×2 (07:44→20:19)
[2021-10-21 07:51] LABS: HEMATOCRIT 38.1 % (36.0-47.0); HEMOGLOBIN 12.3 g/dl (12.0-15.5); MEAN CORPUSCULAR HEMOGLOBIN 28.7 pg (27.0-33.0); MEAN CORPUSCULAR HGB CONC 32.3 g/dl (32.0-36.5); PLATELET COUNT, AUTOMATED 339 10^3/uL (150-450); RED BLOOD COUNT 4.28 10^6/uL (4.00-5.40); WHITE BLOOD COUNT 6.1 10^3/uL (4.0-10.0)
[2021-10-21] MEDS: ENOXAPARIN 40MG/0.4ML SYRINGE (J1650 PER 10MG) SC SCH (08:00)
[2021-10-21 08:15] LABS: BLOOD UREA NITROGEN 8 MG/DL (7-18); CALCIUM LEVEL 9.6 MG/DL (8.5-10.1); CARBON DIOXIDE LEVEL 25 MEQ/L (21-32); CHLORIDE LEVEL 105 MEQ/L (98-107); CREATININE FOR GFR 0.67 MG/DL (0.55-1.30); GLOMERULAR FILTRATION RATE > 60.0 (>58); GLUCOSE, FASTING 110 MG/DL (70-100); MAGNESIUM LEVEL 2.4 MG/DL (1.8-2.4); POTASSIUM SERUM 3.6 MEQ/L (3.5-5.1); SODIUM LEVEL 139 MEQ/L (136-145)
[2021-10-21] MEDS ORDERED: PERC5TAB12 PO (10:03)
[2021-10-21] MEDS ORDERED: LEVA1.25 INH (10:04)
[2021-10-21] MEDS: AZITHROMYCIN INJ 500 MG, VIAL MATE ADAPTER 1 EACH in NS 250 ML IV SCH (11:26)
[2021-10-21] MEDS: predniSONE 20 MG TAB PO SCH (11:26)
[2021-10-21 12:05] LABS: MB/CK RELATIVE INDEX 0.68 (< OR =4)
[2021-10-21 14:00] VITALS: BP 122/72
[2021-10-21] MEDS: cefTRIAXone SOD 1 GM in D5W MINI-BAG PLUS 50 ML IV SCH (14:03)
[2021-10-21] MEDS ORDERED: SODIUM CHLORIDE 0.9% INJ 10 ML SYR IV PRN (14:50)
[2021-10-21] MEDS: ALBUTEROL 90 MCG/ACT 8GM HFA INHALER INH PRN (16:12)
[2021-10-21 19:50] VITALS: BP 119/69
[2021-10-21] MEDS: PERCOCET 5MG/325MG TAB PO SCH (20:34)
[2021-10-21] MEDS ORDERED: CALCIUM CARBONATE 500 MG CHEW U/D PO PRN (21:50)
[2021-10-22 06:00] VITALS: BP 123/71
[2021-10-22] MEDS: ADVAIR HFA 115/21MCG INHALER INH SCH ×2 (07:20→19:42)
[2021-10-22 07:21] LABS: HEMATOCRIT 37.7 % (36.0-47.0); HEMOGLOBIN 11.9 g/dl (12.0-15.5); MEAN CORPUSCULAR HEMOGLOBIN 28.4 pg (27.0-33.0); MEAN CORPUSCULAR HGB CONC 31.6 g/dl (32.0-36.5); PLATELET COUNT, AUTOMATED 301 10^3/uL (150-450); RED BLOOD COUNT 4.19 10^6/uL (4.00-5.40); WHITE BLOOD COUNT 4.3 10^3/uL (4.0-10.0)
[2021-10-22 07:52] LABS: BLOOD UREA NITROGEN 11 MG/DL (7-18); CARBON DIOXIDE LEVEL 29 MEQ/L (21-32); CHLORIDE LEVEL 105 MEQ/L (98-107); CREATININE FOR GFR 0.55 MG/DL (0.55-1.30); GLOMERULAR FILTRATION RATE > 60.0 (>58); GLUCOSE, FASTING 82 MG/DL (70-100); MAGNESIUM LEVEL 2.2 MG/DL (1.8-2.4); POTASSIUM SERUM 4.2 MEQ/L (3.5-5.1); SODIUM LEVEL 141 MEQ/L (136-145)
[2021-10-22] MEDS: predniSONE 20 MG TAB PO SCH (07:57)
[2021-10-22] MEDS: ACETAMINOPHEN TAB 650MG DOSE (2X325MG) PO PRN ×3 (07:58→22:37)
[2021-10-22] MEDS: ENOXAPARIN 40MG/0.4ML SYRINGE (J1650 PER 10MG) SC SCH (07:58)
[2021-10-22] MEDS: SODIUM CHLORIDE 0.9% INJ 10 ML SYR IV SCH (07:59)
[2021-10-22] MEDS: LEVALBUTEROL 1.25 MG/0.5 ML CONCENTRATE NEB INH PRN ×2 (09:39→16:15)
[2021-10-22] MEDS: AZITHROMYCIN INJ 500 MG, VIAL MATE ADAPTER 1 EACH in NS 250 ML IV SCH (11:36)
[2021-10-22] MEDS: cefTRIAXone SOD 1 GM in D5W MINI-BAG PLUS 50 ML IV SCH (13:01)
[2021-10-22 14:00] VITALS: BP 107/69
[2021-10-22] MEDS: ALBUTEROL 90 MCG/ACT 8GM HFA INHALER INH PRN (19:50)
[2021-10-22] MEDS: PERCOCET 5MG/325MG TAB PO SCH (21:55)
[2021-10-22 22:00] VITALS: BP 123/79
[2021-10-23 03:41] VITALS: O2SAT 96
[2021-10-23] MEDS: ACETAMINOPHEN TAB 650MG DOSE (2X325MG) PO PRN (05:37)
[2021-10-23] MEDS: LEVALBUTEROL 1.25 MG/0.5 ML CONCENTRATE NEB INH PRN (05:53)
[2021-10-23] MEDS: ADVAIR HFA 115/21MCG INHALER INH SCH (05:54)
[2021-10-23 06:00] VITALS: BP 113/70
[2021-10-23 06:23] LABS: HEMATOCRIT 37.6 % (36.0-47.0); MEAN CORPUSCULAR HEMOGLOBIN 28.2 pg (27.0-33.0); MEAN CORPUSCULAR HGB CONC 31.9 g/dl (32.0-36.5); MEAN CORPUSCULAR VOLUME 88.3 fl (80.0-96.0); PLATELET COUNT, AUTOMATED 329 10^3/uL (150-450); RED BLOOD COUNT 4.26 10^6/uL (4.00-5.40); WHITE BLOOD COUNT 4.4 10^3/uL (4.0-10.0)
[2021-10-23 06:54] LABS: BLOOD UREA NITROGEN 9 MG/DL (7-18); CALCIUM LEVEL 9.2 MG/DL (8.5-10.1); CARBON DIOXIDE LEVEL 27 MEQ/L (21-32); CHLORIDE LEVEL 107 MEQ/L (98-107); CREATININE FOR GFR 0.58 MG/DL (0.55-1.30); GLOMERULAR FILTRATION RATE > 60.0 (>58); GLUCOSE, FASTING 79 MG/DL (70-100); MAGNESIUM LEVEL 2.2 MG/DL (1.8-2.4); SODIUM LEVEL 141 MEQ/L (136-145)
[2021-10-23] MEDS ORDERED: HYOSCYAMINE SULFATE 0.125 MG SUBL TABLET PO PRN (11:00)
[2021-10-23] MEDS ORDERED: ATROPINE SULFATE 1% OP SOLN 2 ML BTL SL PRN (11:00)
[2021-10-23] MEDS ORDERED: FLEET ENEMA PR PRN (11:00)
[2021-10-23] MEDS ORDERED: LORazepam 1 MG TAB PO PRN (11:00)
[2021-10-23] MEDS ORDERED: ONDANSETRON 4MG/2ML VIAL IV PRN (11:00)
[2021-10-23] MEDS ORDERED: SCOPOLAMINE 1MG TRANSDERMAL PATCH TOP PRN (11:00)
[2021-10-23] MEDS ORDERED: MORPHINE 10MG/0.5ML ORAL CONCENTRATE SOLUTION U/D SL PRN (11:00)
[2021-10-23] MEDS ORDERED: ONDANSETRON 4 MG ORAL DISINTEGRATING TAB PO PRN (11:00)
[2021-10-23] MEDS ORDERED: BISACODYL 10 MG SUPP PR PRN (11:00)
[2021-10-23] MEDS ORDERED: ACETAMINOPHEN 650 MG SUPP PR PRN (11:00)
[2021-10-23] MEDS ORDERED: MORPHINE 2 MG/ML 1ML VIAL (J2270) IV PRN (11:00)
[2021-10-23] MEDS ORDERED: LORazepam 2 MG/ML VIAL IV PRN (11:00)
[2021-10-23] MEDS ORDERED: ATIV1TAB7 PO (11:06)
[2021-10-23] MEDS ORDERED: ONDA4TAB6 PO (11:06)
[2021-10-23] MEDS ORDERED: MORP1SOL SL (11:06)
[2021-10-23] MEDS ORDERED: FLEEENE12 PR (11:06)
[2021-10-23] MEDS ORDERED: TRAN1DIS4 TOP (11:06)
[2021-10-23] MEDS ORDERED: HYOS125TA PO (11:09)
[2021-10-23] MEDS ORDERED: BISA10SU PR (11:09)
[2021-10-23] MEDS ORDERED: ATRO1OPD SL (11:09)
[2021-10-23] MEDS: predniSONE 20 MG TAB PO SCH (11:43)
[2021-10-23] MEDS: SODIUM CHLORIDE 0.9% INJ 10 ML SYR IV SCH (14:05)
== END 2021-10-23 14:51 | disposition hospice, home (50) | DRG 194 ==
LOC: M ED 09:03 → M ED INP 12:01 → ENRESERV 15:55 → M MSPAV 16:18
PROVIDERS: ADMIT Family Medicine; ATTEND Family Medicine
DX: J18.9 Pneumonia, unspecified organism (principal); C78.01 Secondary malignant neoplasm of right lung; C78.02 Secondary malignant neoplasm of left lung; Z51.5 Encounter for palliative care; C50.919 Malignant neoplasm of unspecified site of unspecified female breast; Z79.899 Other long term (current) drug therapy; Z88.6 Allergy status to analgesic agent; Z88.0 Allergy status to penicillin; Z88.2 Allergy status to sulfonamides; G62.9 Polyneuropathy, unspecified; Z87.891 Personal history of nicotine dependence; Z66 Do not resuscitate